=== PATIENT | female | born 1965 | race Caucasian/White ===

== ENCOUNTER 2020-05-21 06:46 | Inpatient (IN) | payer SELFPAY ==
[2020-05-21 06:50] VITALS: BP 141/115; PULSE 103; RESP 20; TEMP 36.2; O2SAT 97; BMI 22.7
--- NOTE | 2020-05-21 07:19 | ED_ITS ---
HPI - Psych General: Chief Complaint: Psychiatric Symptoms Stated Complaint: psych symptoms Time Seen by Provider: 05/21/20 06:46 History of Present Illness: HPI Narrative: 54-year-old female presents to the emergency room with multiple complaints she regularly uses methamphetamines her last use was yesterday. She is extremely disheveled difficult to get her to nail down a specific reason while she is here suspect she is still under the influence of methamphetamines at this time. States she can think about hurting herself but would never do it she has no plan she cites episcopalian disincentive to harming herself states I could never actually kill myself. She also complains of vaginal odor although she denies any vaginal discharge dysuria urgency or frequency states this only occurs when she has sex has been going on for some time. She is wanting it to be admitted to the MPU. complaint: feels depressed Onset (ago): day(s) Duration: constant History of same: Yes Relieving factors: none Exacerbating factors: drug use Context: recent drug abuse Associated psychiatric symptoms: depression and racing thoughts Associated symptoms: Deny auditory hallucinations, visual hallucinations, delusions, depression, homicidal ideation, suicidal ideation or racing thoughts Treatments prior to arrival: none If self harm: admits thoughts of self harm (Has no intent to harm herself. She cites episcopalian as a reason that keeps her from harming herself.) Review of Systems Const: Denies: fever(s), chills, body aches, change in appetite, fatigue or malaise ENMT: Denies: throat pain, ear or mastoid pain, nasal discharge or nasal congestion Card: Denies: chest pain, edema, dyspnea on exertion or orthopnea Resp: Denies: dyspnea, productive cough or non-productive cough GI: Denies: abdominal pain, nausea, vomiting, hematemesis, coffee ground emesis, diarrhea, constipation, bloating, hematochezia or melena : Denies: flank pain, difficulty voiding, dysuria, urinary frequency or urinary urgency Skin/Breast: Denies: rash or pruritus Psych: Denies: depression, visual hallucinations, auditory hallucinations, suicidal ideation or homicidal ideation PFS ED PFSH: Social History (Updated 05/21/20 @ 07:31 by Chris Mayers DO) Substance/Drug Use: current Substance/Drug use frequency: daily Substance/Drug use type: Methamphetamine Physical Exam Const: COMMON NORMALS: no acute distress GENERAL APPEARANCE: cooperative and comfortable ORIENTATION/CONSCIOUSNESS: Yes awake, Yes oriented to person, Yes oriented to place and Yes oriented to time HENMT: COMMON NORMALS: normocephalic, atraumatic and hearing grossly normal bilaterally HEAD & SCALP: normocephalic and atraumatic Neck/C-Spine: COMMON NORMALS: no JVD Resp: COMMON NORMALS: normal respiratory effort, No retractions, No use of accessory muscles and clear to auscultation bilaterally AUSCULTATION: clear to auscultation bilaterally Cardio: COMMON NORMALS: no JVD, regular rate, regular rhythm and No murmurs present (Cardio) RATE: regular rate RHYTHM: regular rhythm GI: COMMON NORMALS: Soft to palpation and No hepatosplenomegaly present AUSCULTATION: Yes normoactive bowel sounds PALPATION: Yes Soft to palpation, No Tenderness to palpation present (GI), No Guarding due to palpation present (GI) and Yes No hepatosplenomegaly present Back/Pelvis: OTHER: Patient agreed to allow nurse and SANE training to do pelvic exam. exam supervised by myself. No cervical motion tenderness noted Extremity: COMMON NORMALS: normal to inspection, capillary refill normal, no clubbing, cyanosis or edema, no calf tenderness and no pedal edema Neuro: SENSORIUM/ORIENTATION: Yes oriented to person, Yes oriented to place and Yes oriented to time Psych: THOUGHT CONTENT: No delusions Skin: COMMON NORMALS: no rashes or lesions noted GENERAL SKIN EXAM: no rashes or lesions noted MDM - Psych MDM Narrative: Medical decision making narrative: Patient expresses suicidal ideation but then states she would not actually harm herself she is very anxious. She seems to be having anxiety she comes off the methamphetamine. It is difficult to separate this out I discussed with Dr. Lacy ultimately decided to place patient in observation she is willing to be admitted and is actually requesting it. We did do GC chlamydia and wet mount if those are negative the neck step would be to refer her to gynecology for further evaluation. Lab Data: Labs: Lab Results 05/21/20 05/21/20 05/21/20 Range/Units 07:15 07:15 07:42 WBC 4.9 (4.0-10.0) 10^3/ uL RBC 5.37 H (4.1-5.3) 10^6/u L Hgb 15.6 H (11.5-15.3) g/dL Hct 49.7 H (37.0-47.0) % MCV 92.6 (81-99) fL MCH 29.1 (28.0-34.0) pg MCHC 31.4 (30.0-36.0) g/dL RDW 12.3 (12.1-15.1) % Plt Count 232 (130-400) 10^3/c mm MPV 9.1 (7.4-10.4) fL Neut % (Auto) 54.6 % Lymph % (Auto) 34.4 % [place] % (Auto) 6.3 % Eos % (Auto) 3.9 % Baso % (Auto) 0.6 % Neut # (Auto) 2.68 (1.8-7.7) 10^3/u L Lymph # (Auto) 1.7 (0.8-4.8) 10^3/u L [place] # (Auto) 0.3 (0.2-0.9) 10^3/u L Eos # (Auto) 0.2 (0.0-0.8) 10^3/u L Baso # (Auto) 0.0 (0.0-0.1) 10^3/u L Nucleated RBC % (a uto) 0 % Nucleated RBCs # 0.0 /100WBC Sodium (136-145) mmol/L Potassium (3.5-5.1) mmol/L Chloride (98-107) mmol/L Carbon Dioxide (22-29) mmol/L Anion Gap (5-19) BUN (6-20) mg/dL Creatinine (0.5-0.9) mg/dL GFR Calculation (90-130) mL/min Glucose (65-115) mg/dL Calculated Osmolal ity (285-295) mOsm/k g Calcium (8.5-10.5) mg/dL Total Bilirubin (0.15-1.2) mg/dL AST (0-32) U/L ALT (0-33) U/L Alkaline Phosphata se (35-105) IU/L Total Protein (6.6-8.7) g/dL Albumin (3.5-5.2) g/dL Globulin (1.3-4.6) g/dL Urine Color Yellow (Yellow) Urine Appearance Clear (CLEAR) Urine pH 6.0 (5-7) Ur Specific Gravit y 1.015 (1.005-1.030) Urine Protein Neg (Negative) Urine Glucose (UA) Norm (Normal) Urine Ketones Negative (Negative) Urine Blood Neg (Negative) Urine Nitrate Negative (Negative) Urine Bilirubin Neg (Negative) Urine Urobilinogen Norm (Negative) mg/dL Ur Leukocyte Lizeth ase Negative (Negative) Salicylates (3-10) mg/dL Urine Opiates Scre en Negative (Negative) ng/mL Acetaminophen (10-30) ug/mL Ur Barbiturates Sc reen Negative (Negative) ng/mL Ur Phencyclidine S crn Negative (Negative) ng/mL Ur Amphetamines Sc reen Positive H (Negative) ng/mL U Benzodiazepines Scrn Negative (Negative) ng/mL Urine Cocaine Scre en Negative (Negative) ng/mL U Marijuana (THC) Screen Negative (Negative) ng/mL Ethyl Alcohol (0-10) mg/dL 05/21/20 Range/Units 07:42 WBC (4.0-10.0) 10^3/ uL RBC (4.1-5.3) 10^6/u L Hgb (11.5-15.3) g/dL Hct (37.0-47.0) % MCV (81-99) fL MCH (28.0-34.0) pg MCHC (30.0-36.0) g/dL RDW (12.1-15.1) % Plt Count (130-400) 10^3/c mm MPV (7.4-10.4) fL Neut % (Auto) % Lymph % (Auto) % [place] % (Auto) % Eos % (Auto) % Baso % (Auto) % Neut # (Auto) (1.8-7.7) 10^3/u L Lymph # (Auto) (0.8-4.8) 10^3/u L [place] # (Auto) (0.2-0.9) 10^3/u L Eos # (Auto) (0.0-0.8) 10^3/u L Baso # (Auto) (0.0-0.1) 10^3/u L Nucleated RBC % (a uto) % Nucleated RBCs # /100WBC Sodium 137 (136-145) mmol/L Potassium 3.7 (3.5-5.1) mmol/L Chloride 101 (98-107) mmol/L Carbon Dioxide 29 (22-29) mmol/L Anion Gap 10.7 (5-19) BUN 8 (6-20) mg/dL Creatinine 0.7 (0.5-0.9) mg/dL GFR Calculation 87.9 L (90-130) mL/min Glucose 115 (65-115) mg/dL Calculated Osmolal ity 283 L (285-295) mOsm/k g Calcium 9.6 (8.5-10.5) mg/dL Total Bilirubin 0.2 (0.15-1.2) mg/dL AST 16 (0-32) U/L ALT 14 (0-33) U/L Alkaline Phosphata se 71 (35-105) IU/L Total Protein 7.1 (6.6-8.7) g/dL Albumin 4.2 (3.5-5.2) g/dL Globulin 2.9 (1.3-4.6) g/dL Urine Color (Yellow) Urine Appearance (CLEAR) Urine pH (5-7) Ur Specific Gravit y (1.005-1.030) Urine Protein (Negative) Urine Glucose (UA) (Normal) Urine Ketones (Negative) Urine Blood (Negative) Urine Nitrate (Negative) Urine Bilirubin (Negative) Urine Urobilinogen (Negative) mg/dL Ur Leukocyte Lizeth ase (Negative) Salicylates < 0.3 L (3-10) mg/dL Urine Opiates Scre en (Negative) ng/mL Acetaminophen < 5.0 L (10-30) ug/mL Ur Barbiturates Sc reen (Negative) ng/mL Ur Phencyclidine S crn (Negative) ng/mL Ur Amphetamines Sc reen (Negative) ng/mL U Benzodiazepines Scrn (Negative) ng/mL Urine Cocaine Scre en (Negative) ng/mL U Marijuana (THC) Screen (Negative) ng/mL Ethyl Alcohol < 10 (0-10) mg/dL Discharge Plan Discharge Patient Disposition: Placed in Observation Admit Provider: Antonio Lacy Clinical Impression: Acute anxiety, Suicidal ideation, Substance abuse Coding Level of Care Code ED Milliner Helper for g Fwd Exam Comprehensive
[2020-05-21 07:31] LABS: Add Urine Microscopic? NO
[2020-05-21 07:37] LABS: Bilirubin Urine Neg (Negative); Blood Urine Neg (Negative); Glucose Urine UA Norm (Normal); Ketones Urine Negative (Negative); Leukocyte Esterase Urine Negative (Negative); Nitrate Urine Negative (Negative); Protein Urine Neg (Negative); Specific Gravity, Urine 1.015 (1.005-1.030); Urine Appearance Clear (CLEAR); Urine Color Yellow (Yellow); Urobilinogen Urine Norm (Negative)
[2020-05-21 07:41] LABS: Amphetamines Screen Urine Positive (Negative); Barbiturates Screen Urine Negative (Negative); Benzodiazepines Screen Urine Negative (Negative); Cocaine Screen Urine Negative (Negative); Opiate Screen Urine Negative (Negative); PCP Screen Urine Negative (Negative); THC Screen Urine Negative (Negative)
[2020-05-21 07:52] LABS: Basophils % 0.6 %; Eosinophils # 0.2 10^3/uL (0.0-0.8); Eosinophils % 3.9 %; Hematocrit 49.7 % (37.0-47.0); Hemoglobin 15.6 g/dL (11.5-15.3); Lymphocytes # 1.7 10^3/uL (0.8-4.8); Lymphocytes % 34.4 %; Mean Corpuscular HGB Conc 31.4 g/dL (30.0-36.0); Mean Corpuscular Hemoglobin 29.1 pg (28.0-34.0); Mean Corpuscular Volume 92.6 fL (81-99); Mean Platelet Volume 9.1 fL (7.4-10.4); Monocytes # 0.3 10^3/uL (0.2-0.9); Monocytes % 6.3 %; Neutrophils # 2.68 10^3/uL (1.8-7.7); Neutrophils % 54.6 %; Nucleated Red Blood Cells % 0 %; Platelet Count 232 10^3/cmm (130-400); Red Blood Count 5.37 10^6/uL (4.1-5.3); Red Cell Distribution Width 12.3 % (12.1-15.1); White Blood Count 4.9 10^3/uL (4.0-10.0)
[2020-05-21 08:07] LABS: Alanine Aminotransferase 14 U/L (0-33); Albumin Level 4.2 g/dL (3.5-5.2); Alkaline Phosphatase 71 IU/L (35-105); Anion Gap 10.7 (5-19); Aspartate Amino Transferase 16 U/L (0-32); Blood Urea Nitrogen 8 mg/dL (6-20); Calcium 9.6 mg/dL (8.5-10.5); Carbon Dioxide 29 mmol/L (22-29); Chloride 101 mmol/L (98-107); Globulin 2.9 g/dL (1.3-4.6); Glomerular Filtration Rate 87.9 mL/min (90-130); Glucose 115 mg/dL (65-115); Osmolality Calculated 283 mOsm/kg (285-295); Potassium 3.7 mmol/L (3.5-5.1); Sodium 137 mmol/L (136-145); Total Bilirubin 0.2 mg/dL (0.15-1.2); Total Protein 7.1 g/dL (6.6-8.7)
[2020-05-21 08:10] LABS: Acetaminophen < 5.0 ug/mL (10-30); Alcohol Level < 10 mg/dL (0-10); Salicylate < 0.3 mg/dL (3-10)
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
[2020-05-21 09:00] VITALS: BP 140/92; PULSE 95; RESP 18; O2SAT 96
[2020-05-21 09:08] VITALS: BP 130/87; PULSE 87; RESP 20; TEMP 36.7; O2SAT 99
[2020-05-21] MEDS: metroNIDAZOLE 500 MG Tablet PO ×2 (09:59→21:26)
--- NOTE | 2020-05-21 10:01 | PC.NURSE ---
FLU VACCINE 1 SINGLE DOSE 0.5 ML GIVEN IM IN RIGHT DELTOID. PT EDUCATED ON MED GIVEN & VERBALIZED UNDERSTANDING. WILL CONT TO MONITOR INJECTION SITE FOR ANY REDNESS, SWELLING, OR IRRITATION. LOT [id number] EXP 10/13/20
[2020-05-21 14:00] VITALS: BP 115/75; PULSE 87; RESP 18; TEMP 36.9; O2SAT 98
[2020-05-21] MEDS: nicotine 2 mg Gum BUCCAL (15:06)
[2020-05-21] MEDS: trazodone 50 mg Tablet PO (21:26)
[2020-05-21] MEDS: hyDROXYzine 25 mg Capsule 50 MG PO (21:26)
[2020-05-21] MEDS: acetaminophen 325 mg Tablet 650 MG PO (21:27)
[2020-05-21 22:00] VITALS: BP 112/71; PULSE 118; RESP 19; TEMP 36.9; O2SAT 95
--- NOTE | 2020-05-22 01:34 | PC.NURSE ---
Pain/hands Bilateral hand pain, wrist, and joint. She reports pain at a 10. Tearful. Pt received tylenol 650mg PO without much relief. This is a chronic condition. It has never been diagnosed and is worse than it has ever been per pt report. Applied heat compresses for 15 minutes to both hands, soaked them in warm water, and patient reported immediate relief. Pt does not want any more medication but would like to see a physician about her hand pain.
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
[2020-05-22 06:00] VITALS: BP 117/72; PULSE 86; RESP 16; TEMP 37.1; O2SAT 94
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
[2020-05-22] MEDS: metroNIDAZOLE 500 MG Tablet PO ×2 (08:41→21:53)
[2020-05-22 13:52] VITALS: BP 122/80; PULSE 90; RESP 17; TEMP 37.1; O2SAT 95
[2020-05-22 20:34] VITALS: BP 127/84; PULSE 93; RESP 18; TEMP 37.1; O2SAT 95
[2020-05-22] MEDS: hyDROXYzine 25 mg Capsule 50 MG PO (21:53)
[2020-05-22] MEDS: nicotine 2 mg Gum BUCCAL (21:53)
[2020-05-22] MEDS: trazodone 50 mg Tablet PO (21:54)
[2020-05-22] MEDS: acetaminophen 325 mg Tablet 650 MG PO (21:54)
[2020-05-23 06:00] VITALS: BP 143/83; PULSE 101; RESP 16; TEMP 36.9; O2SAT 96; BMI 22.7
--- NOTE | 2020-05-23 06:04 | PC.NURSE ---
TRAZODONE/VISTERIL/TYLENOL @ 2100 PT RECEIVED TRAZODONE 50MG PO, VISTERIL 50MG PO, TYLENOL 650MG PO GIVEN FOR INSOMNIA, ANXIETY, AND MINOR WRIST PAIN, result sleep, reduction of anxiety, and relief of pain.
[2020-05-23] MEDS: acetaminophen 325 mg Tablet 650 MG PO (09:04)
[2020-05-23] MEDS: ARIPiprazole 10 mg Tablet PO (09:04)
[2020-05-23] MEDS: metroNIDAZOLE 500 MG Tablet PO (09:04)
[2020-05-23] MEDS: ibuprofen 800 mg tablet PO (11:02)
[2020-05-23 14:00] VITALS: BP 123/76; PULSE 89; RESP 18; TEMP 37.7
--- NOTE | 2020-05-23 14:33 | PM.NDC ---
Diagnoses at Discharge Discharge Diagnosis (1) Acute anxiety: Status: Acute (2) Suicidal ideation: Status: Resolved (3) Substance abuse: Status: Acute (4) Psychosis: Status: Acute (5) Methamphetamine abuse: Status: Acute (6) Withdrawal from methamphetamine: Status: Resolved Reason for Visit Reason for Visit: psych symptoms Involuntary Hold Information 96 Hour Hold: 96 Hour Involuntary Admission: No Mental Status Exam MSE Comments: This is a well-nourished well-developed white female with hospital scrubs on with improved grooming and eye contact. No abnormal movements except for mild but resolving psychomotor retardation. Cooperative with exam in no acute distress. Speech was more normal rate and volume. Mood described as better, affect congruent. Thought process more organized. Thought content: Patient denied any suicidal or homicidal ideation, there is no delusions reported but paranoia and persecutory delusions resolving, she denied any auditory or visual hallucinations but some of her story sounds like she was having both prior to admission. Attention and concentration were intact and memory was more reliable but none were formally tested. She is alert and oriented x3. Insight and judgment are improving, impulse control is improving. Discharge Data Vitals: Last Vital Signs Temp 99.9 F H 05/23/20 14:00 Pulse 89 05/23/20 14:00 Resp 18 05/23/20 14:00 BP 123/76 05/23/20 14:00 Pulse Ox 96 05/23/20 06:00 Discharge Plan Discharge Patient Disposition: Home Condition: Stable Prescriptions: New aripiprazole 10 mg Tablet 10 mg PO DAILY 30 Days Qty: 30 RF: 1 Discharge Orders: Discharge Order (Routine); Ordered 05/23/20 Ordered By: Antonio Lacy Referrals: [facility] [Other] (Application has been faxed to them. Please follow up with them on bed availability or interview if not sent directly from the hospital.) Discharge Diet: Regular Discharge Activity: Resume usual activity Discharge Attestations NPU Time Spent in Discharge Care*: less than 30 min Specific Discharge Activities: Specific discharge activities: educating patient, discussing with employment evaluator/case manager/social workers/dc planners, documenting/other paperwork and evaluating patient/reviewing data Coding Level of Care Code Acute Ice Cream Chef for René Dubose Diagnoses Acute anxiety F41.9 Suicidal ideation R45.851 Substance abuse F19.10 Psychosis F29 Methamphetamine abuse F15.10 Withdrawal from methamphetamine F15.23
[2020-05-23 14:34] VITALS: BP 123/76; PULSE 89; RESP 18; TEMP 37.7
== END 2020-05-23 14:51 | disposition home or self-care (01) | DRG 885 ==
LOC: ER 06:55 → NP 08:44
PROVIDERS: Admitting Provider Psychiatry & Neurology Psychiatry; Emergency Provider Family Medicine; Visit Provider Psychiatry & Neurology Psychiatry
DX: F23 Brief psychotic disorder (principal); R45.851 Suicidal ideations; F15.13 Other stimulant abuse with withdrawal; F41.9 Anxiety disorder, unspecified; F32.9 Major depressive disorder, single episode, unspecified
CPT/HCPCS: 12345; 36415; 80053; 80306; 80307; 81003; 85025; 87210; 87491; 87591; 87661; 90471; 90686; 99284; 99291; E0352

== ENCOUNTER 2021-05-20 10:44 | Inpatient (IN) | payer MEDICAID, SELFPAY ==
[2021-05-20 10:52] VITALS: BMI 26.6
--- NOTE | 2021-05-20 10:55 | W.ED.PSYCHS ---
HPI - Psych General: Chief Complaint: Psychiatric Symptoms Stated Complaint: 96 Time Seen by Provider: 05/20/21 10:51 Source: patient History of Present Illness: 55-year-old female who presents to the emergency room in the custody of [facility]. She has a 96-hour hold from the court for acute psychosis with auditory and visual hallucinations. Patient has been admitted to our facility previously almost a year ago to the day for a similar type presentation. She is noncooperative and refuses to discuss her situation. She is fixating on the fact that she is eating inappropriately detained. complaint: altered mental status Onset (ago): day(s) Duration: constant History of same: Yes Relieving factors: none Exacerbating factors: drug use Context: recent drug abuse Associated psychiatric symptoms: racing thoughts, auditory hallucinations and visual hallucinations Associated symptoms: Reports auditory hallucinations and visual hallucinations Treatments prior to arrival: placed on mental health hold Review of Systems General: Reports: ROS unobtainable due to mental status Psych: Reports: visual hallucinations and auditory hallucinations PFS ED PFSH: Medical History (Updated 05/20/21 @ 17:01 by Chris Mayers DO) Acute anxiety Methamphetamine abuse Psychosis Substance abuse Surgical History (Updated 05/20/21 @ 16:58 by Chris Mayers DO) No significant past surgical history Physical Exam Narrative: EXAM NARRATIVE: Patient refused to allow exam initially. Const: ORIENTATION/CONSCIOUSNESS: Yes awake HENMT: COMMON NORMALS: normocephalic, atraumatic and hearing grossly normal bilaterally HEAD & SCALP: normocephalic and atraumatic Neck/C-Spine: COMMON NORMALS: no JVD Resp: COMMON NORMALS: normal respiratory effort, No retractions, No use of accessory muscles and clear to auscultation bilaterally AUSCULTATION: clear to auscultation bilaterally Cardio: COMMON NORMALS: no JVD, regular rate, regular rhythm and No murmurs present (Cardio) RATE: regular rate RHYTHM: regular rhythm GI: COMMON NORMALS: Soft to palpation and No hepatosplenomegaly present AUSCULTATION: Yes normoactive bowel sounds PALPATION: Yes Soft to palpation, No Tenderness to palpation present (GI), No Guarding due to palpation present (GI) and Yes No hepatosplenomegaly present Extremity: COMMON NORMALS: normal to inspection, capillary refill normal, no clubbing, cyanosis or edema, no calf tenderness and no pedal edema Skin: COMMON NORMALS: no rashes or lesions noted GENERAL SKIN EXAM: no rashes or lesions noted Face to Face: Restrn/Seclusion Events leading up to initiation: Verbalizing threat to self or others (Patient aggressive attempting to leave refusing to comply with encouragement to change) Evaluation of patient's immediate situation: Alert and oriented Patient reaction since intervention applied: Continued attempts/displays harmful behavior Review of medications: Yes Patient's current medical/behavioral condition: No new concerns since last ROS Need for restraint or seclusion is: Continued Attending notified: Yes Course Vital Signs: Vital signs: Vital Signs Temperature 98.0 F 05/20/21 14:37 Pulse Rate 94 05/20/21 14:37 Respiratory Rate 13 05/20/21 16:49 Blood Pressure 97/59 05/20/21 14:37 Pulse Oximetry 100 05/20/21 14:37 MDM - Psych Medical Decision Making Labs reviewed. Discussed with Dr. Lacy. Patient irrational with bizarre auditory and visual hallucinations random streams of thought. She is under 96-hour hold Dr. Lacy concurs orders written Medical Records I reviewed the patient's medical records. Lab Data I reviewed the patient's lab results. : 05/20/21 13:25 05/20/21 13:25 Discharge Plan Discharge Patient Disposition: Admitted As Inpatient Admit Provider: Antonio Lacy Clinical Impression: Psychosis, Methamphetamine abuse Condition: Stable Coding Level of Care Code ED Overhauler Helper for René Dubose
[2021-05-20] MEDS: LORazepam 2 mg/mL INJ 1 mL IM (11:06)
[2021-05-20] MEDS: ziprasidone 20 mg/mL SDV 10 MG IM (11:07)
[2021-05-20 12:06] VITALS: PULSE 107; RESP 18; O2SAT 97
--- NOTE | 2021-05-20 12:07 | PC.NURSE ---
Pt uncooperative with obtaining initial blood pressure.
[2021-05-20 13:35] LABS: Basophils % 0.5 %; Eosinophils # 0.1 10^3/uL (0.0-0.8); Eosinophils % 1.6 %; Hematocrit 38.6 % (37.0-47.0); Hemoglobin 12.2 g/dL (11.5-15.3); Lymphocytes # 1.3 10^3/uL (0.8-4.8); Lymphocytes % 29.6 %; Mean Corpuscular HGB Conc 31.6 g/dL (30.0-36.0); Mean Corpuscular Volume 95.1 fl (81-99); Mean Platelet Volume 8.8 fL (7.4-10.4); Monocytes # 0.4 10^3/uL (0.2-0.9); Monocytes % 8.7 %; Neutrophils # 2.54 10^3/uL (1.8-7.7); Neutrophils % 59.6 %; Nucleated Red Blood Cells % 0 %; Platelet Count 232 10^3/cmm (130-400); Red Blood Count 4.06 10^6/uL (4.1-5.3); Red Cell Distribution Width 13.2 % (12.1-15.1); White Blood Count 4.3 10^3/uL (4.0-10.0)
[2021-05-20 13:59] LABS: Alanine Aminotransferase 18 U/L (0-33); Albumin Level 4.5 g/dL (3.5-5.2); Alkaline Phosphatase 63 IU/L (35-105); Anion Gap 18.6 (5-19); Aspartate Amino Transferase 24 U/L (0-32); Blood Urea Nitrogen 17 mg/dL (6-20); Calcium 9.8 mg/dL (8.5-10.5); Carbon Dioxide 20 mmol/L (22-29); Chloride 102 mmol/L (98-107); Globulin 2.2 g/dL (1.3-4.6); Glomerular Filtration Rate 104.6 mL/min (90-130); Glucose 109 mg/dL (65-115); Osmolality Calculated 286 mOsm/kg (285-295); Potassium 3.6 mmol/L (3.5-5.1); Sodium 137 mmol/L (136-145); Total Bilirubin 0.5 mg/dL (0.15-1.2); Total Protein 6.7 g/dL (6.6-8.7)
[2021-05-20 14:00] LABS: Acetaminophen < 5.0 ug/mL (10-30); Salicylate < 0.3 mg/dL (3-10)
[2021-05-20 14:37] VITALS: BP 97/59; PULSE 94; RESP 20; TEMP 36.7; O2SAT 100
[2021-05-20 16:49] VITALS: RESP 13
[2021-05-20 21:28] VITALS: BP 107/74; PULSE 97; RESP 18; TEMP 36.6; O2SAT 95
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
[2021-05-21 06:00] VITALS: BP 100/63; PULSE 72; RESP 18; TEMP 37.4; O2SAT 97
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
[2021-05-21] MEDS: sertraline 50 mg Tablet PO (08:20)
[2021-05-21] MEDS: nicotine 21 mg Patch 1 PATCH TRANSDERMA (08:54)
[2021-05-21 14:00] VITALS: BP 136/88; PULSE 80; RESP 17; TEMP 36.2; O2SAT 99
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
[2021-05-21] MEDS: ARIPiprazole 10 mg Tablet PO (17:11)
[2021-05-21] MEDS: quetiapine 100 mg Tablet 200 MG PO (21:10)
[2021-05-21] MEDS: mirtazapine 15 mg Tablet PO (21:11)
[2021-05-21] MEDS: trazodone 50 mg Tablet PO (21:11)
[2021-05-21 21:29] VITALS: BP 126/78; PULSE 86; RESP 17; TEMP 36.7; O2SAT 94
[2021-05-22 06:00] VITALS: BP 98/55; PULSE 86; RESP 16; TEMP 37.2; O2SAT 98; BMI 26.6
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
[2021-05-22] MEDS: sertraline 50 mg Tablet PO (10:16)
[2021-05-22] MEDS: ARIPiprazole 10 mg Tablet PO (10:16)
[2021-05-22 14:00] VITALS: BP 126/70; PULSE 92; RESP 18; TEMP 36.6; O2SAT 94
[2021-05-22] MEDS: quetiapine 100 mg Tablet 200 MG PO (20:48)
[2021-05-22] MEDS: mirtazapine 15 mg Tablet PO (20:48)
[2021-05-22] MEDS: trazodone 50 mg Tablet PO (20:48)
[2021-05-22 20:56] VITALS: BP 120/72; PULSE 105; RESP 17; TEMP 36.7; O2SAT 98
[2021-05-22] MEDS: bisacodyl 5 mg Tablet PO (21:15)
[2021-05-23 06:00] VITALS: BP 103/66; PULSE 86; RESP 18; TEMP 36.7; O2SAT 92
[2021-05-23] MEDS: ARIPiprazole 10 mg Tablet PO (10:30)
[2021-05-23] MEDS: sertraline 50 mg Tablet PO (10:30)
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
--- NOTE | 2021-05-23 11:47 | PC.OT ---
OT EVALUATION ATTEMPTED. PATIENT ASKED TO WAIT UNTIL TOMORROW. STATES THAT SHE DOES NOT PLAN TO ATTEND GROUPS TODAY.
--- NOTE | 2021-05-23 13:12 | NPU.GN ---
[facility] Group Topic: Whine Barrel Activity General Mood of Group: Brooklyn did not attend group today.
[2021-05-23] MEDS: nicotine 21 mg Patch 1 PATCH TRANSDERMA (13:43)
[2021-05-23 14:00] VITALS: BP 116/72; PULSE 95; RESP 18; TEMP 37; O2SAT 94
[2021-05-23 22:00] VITALS: BP 113/75; PULSE 70; RESP 18; O2SAT 96
[2021-05-23] MEDS: quetiapine 100 mg Tablet 200 MG PO (22:02)
[2021-05-23] MEDS: trazodone 50 mg Tablet PO (22:02)
[2021-05-23] MEDS: mirtazapine 15 mg Tablet PO (22:02)
[2021-05-24 06:00] VITALS: BP 107/68; PULSE 83; RESP 18; TEMP 36.6; O2SAT 91
[2021-05-24] MEDS: sertraline 50 mg Tablet PO (09:17)
[2021-05-24] MEDS: ARIPiprazole 10 mg Tablet PO (09:17)
--- NOTE | 2021-05-24 13:03 | NPU.GN ---
[facility] Group Topic: Self Care General Mood of Group: Brooklyn did not attend group today.
[2021-05-24 14:00] VITALS: BP 128/74; PULSE 68; RESP 17; TEMP 36.9; O2SAT 98
[2021-05-24] MEDS: hyDROXYzine 25 mg Capsule 50 MG PO (17:08)
--- NOTE | 2021-05-24 17:44 | P.NPUPN_ITS ---
Subjective NPU Subjective: Interval history: Patient presents today having slow and continued improvement in regards to the psychotic features of her presentation. Team was able to connect with her p.o. and it is likely that there is a sober living facility available as early as tomorrow. She continues to endorse a commitment to her recovery and she is starting to be able to identify the possibility that her psychosis and her thoughts about her children not being safe are interconnected and this is interconnected with her methamphetamine use. She continues to take the medication and reports he is eating and sleeping a little better. Mental Status Exam MSE Comments: This is a well-nourished well-developed white female with hospital scrubs on with limited grooming and eye contact.? No abnormal movements except for mild psychomotor retardation.? Cooperative with exam in no acute distress.? Speech was more normal rate and volume.? Mood described as a little better, affect subdued.? Thought process mostly organized.? Thought content: Patient denied any suicidal or homicidal ideation, there is no delusions reported but lessening paranoid and persecutory delusions noted, she denied any auditory or visual hallucinations but some of her story sounds like she was having both prior to admission.? Attention and concentration were intact and memory was more reliable but none were formally tested.? She is alert and oriented x3.? Insight and judgment are improving, impulse control is limited. Vitals/I&O/Wt Last Vital Signs Temp 98.5 F 05/24/21 14:00 Pulse 68 05/24/21 14:00 Resp 17 05/24/21 14:00 BP 128/74 05/24/21 14:00 Pulse Ox 98 05/24/21 14:00 Data NPU : 05/20/21 13:25 05/20/21 13:25 A&P Assessment and plan (1) Methamphetamine dependence: Status: Acute (2) No significant past surgical history: Status: Acute (3) Substance abuse: Status: Acute (4) Acute anxiety: Status: Acute (5) Psychosis: Status: Acute (6) Methamphetamine abuse: Status: Acute Plan This is a 55-year-old white female with a long history of mental health and addiction issues with active methamphetamine dependence and psychosis either created or exacerbated by her methamphetamine use who presents with significant focus on her children being trafficked off of her medication will open to restarting it. 1.? Continue current medication.? Restarted Abilify 10 mg p.o. every morning. 2.? Continue every 15 minute checks for safety. 3.? Encourage individual, group and milieu therapies. 4.? Encourage sober living treatment after discharge at the highest level of care to which he is willing to commit. Involuntary Hold Information 96 Hour Hold: 96 Hour Involuntary Admission: Yes Attestations NPU Medical Necessity Statement*: Inpatient hospitalization is medically necessary and the clinically appropriate intervention at this time. We will monitor medication to make changes as indicated.? Likely length of stay 1-2 days. Coding Level of Care Code Acute Business Process Coordinator for [facility] Fwd Diagnoses Methamphetamine dependence F15.20 No significant past surgical history Substance abuse F19.10 Acute anxiety F41.9 Psychosis F29 Methamphetamine abuse F15.10
--- NOTE | 2021-05-24 18:47 | PC.PHAR ---
PRN- Patient c/o anxiety and agitation at 1710. Took PRN Vistaril. Patient has had no further c/o voiced.
[2021-05-24 20:26] VITALS: BP 100/62; PULSE 91; RESP 18; TEMP 36.6; O2SAT 98
[2021-05-24] MEDS: mirtazapine 15 mg Tablet PO (21:42)
[2021-05-24] MEDS: quetiapine 100 mg Tablet 200 MG PO (21:42)
[2021-05-24] MEDS: trazodone 50 mg Tablet PO (21:44)
[2021-05-25 05:46] VITALS: BP 95/62; PULSE 70; RESP 17; TEMP 36.7; O2SAT 94
[2021-05-25] MEDS: sertraline 50 mg Tablet PO (08:39)
[2021-05-25] MEDS: ARIPiprazole 10 mg Tablet PO (08:39)
--- NOTE | 2021-05-25 12:55 | NPU.GN ---
[facility] Group Topic:Coping Skills General Mood of Group: [place] did not attend group today.
[2021-05-25 13:49] VITALS: BP 109/72; PULSE 75; RESP 24; TEMP 36.9; O2SAT 98
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
[2021-05-25 14:04] VITALS: BP 109/72; PULSE 75; RESP 24; TEMP 36.9; O2SAT 98
== END 2021-05-25 14:29 | disposition home or self-care (01) | DRG 885 ==
LOC: ER 11:03 → NP 13:20
PROVIDERS: Admitting Provider Psychiatry & Neurology Psychiatry; Emergency Provider Family Medicine; Visit Provider Psychiatry & Neurology Psychiatry
DX: F23 Brief psychotic disorder (principal); F15.20 Other stimulant dependence, uncomplicated; F41.9 Anxiety disorder, unspecified
CPT/HCPCS: 36415; 80053; 80307; 85025; 96372; 97150; 97165; 99285; J2060; J3486

== ENCOUNTER 2021-06-24 17:30 | Inpatient (IN) | payer MEDICAID, SELFPAY ==
[2021-06-24 17:36] VITALS: BP 127/80; PULSE 103; RESP 16; TEMP 36.6; O2SAT 96; BMI 22.5
--- NOTE | 2021-06-24 18:03 | W.ED.PSYCHS ---
Documented by User: Chris Mayers DO 06/28/21 16:41 HPI - Psych General: Chief Complaint: Psychiatric Symptoms Stated Complaint: 96'd ? Time Seen by Provider: 06/24/21 17:45 Source: patient Mode of arrival: other (Law enforcement) Limitations: no limitations History of Present Illness: 55-year-old female who has a history of schizophrenia and bipolar per her report. She been having auditory and visual hallucinations including thoughts about harming herself this was several days ago spent a few weeks and she is taking her medications appropriately she states she did take them last night she has been using methamphetamine recently. She was highlighted a 96-hour hold was filled out. She is brought in here to be evaluated. She is awake alert oriented answers questions appropriately states she is not used methamphetamines for a couple of days and denies any suicidal homicidal ideation at this time denies any ongoing auditory or visual hallucination MD complaint: suicidal ideation Onset (ago): day(s) Duration: constant Relieving factors: none Exacerbating factors: none Context: recent drug abuse Associated psychiatric symptoms: racing thoughts, auditory hallucinations, visual hallucinations and delusions Associated symptoms: Reports auditory hallucinations, visual hallucinations, delusions and suicidal ideation Treatments prior to arrival: placed on mental health hold If self harm: admits thoughts of self harm Review of Systems Const: Denies: fever(s), chills, body aches, change in appetite, fatigue or malaise ENMT: Denies: throat pain, ear or mastoid pain, nasal discharge or nasal congestion Card: Denies: chest pain, edema, dyspnea on exertion or orthopnea Resp: Denies: dyspnea, productive cough or non-productive cough GI: Denies: abdominal pain, nausea, vomiting, hematemesis, diarrhea or constipation : Denies: flank pain, difficulty voiding, dysuria, urinary frequency or urinary urgency Skin/Breast: Denies: rash or pruritus Psych: Reports: visual hallucinations, auditory hallucinations and suicidal ideation PFS ED PFSH: Medical History (Updated 06/24/21 @ 19:06 by Keith Mcmahon DO) Acute anxiety Psychosis Substance abuse Surgical History (Updated 05/26/21 @ 00:00 by ) No significant past surgical history Physical Exam Const: GENERAL APPEARANCE: cooperative and comfortable ORIENTATION/CONSCIOUSNESS: Yes awake HENMT: COMMON NORMALS: normocephalic, atraumatic and hearing grossly normal bilaterally HEAD & SCALP: normocephalic and atraumatic Neck/C-Spine: COMMON NORMALS: no JVD Resp: COMMON NORMALS: normal respiratory effort, No retractions, No use of accessory muscles and clear to auscultation bilaterally AUSCULTATION: clear to auscultation bilaterally Cardio: COMMON NORMALS: no JVD, regular rate, regular rhythm and No murmurs present (Cardio) RATE: regular rate RHYTHM: regular rhythm GI: COMMON NORMALS: Soft to palpation and No hepatosplenomegaly present AUSCULTATION: Yes normoactive bowel sounds PALPATION: Yes Soft to palpation, No Tenderness to palpation present (GI), No Guarding due to palpation present (GI) and Yes No hepatosplenomegaly present Extremity: COMMON NORMALS: normal to inspection, capillary refill normal, no clubbing, cyanosis or edema, no calf tenderness and no pedal edema Psych: THOUGHT CONTENT: Yes delusions Skin: COMMON NORMALS: no rashes or lesions noted GENERAL SKIN EXAM: no rashes or lesions noted Course Vital Signs: Vital signs: Vital Signs Temperature 98.0 F 06/28/21 13:56 Pulse Rate 86 06/28/21 13:56 Respiratory Rate 17 06/28/21 13:56 Blood Pressure 115/71 06/28/21 13:56 Pulse Oximetry 96 06/28/21 13:56 MDM - Psych Medical Records I reviewed the patient's medical records. Lab Data I reviewed the patient's lab results. : 06/24/21 18:15 06/24/21 18:15 Laboratory Results WBC 7.0 10^3/uL (4.0-10.0) 06/24/21 18:15 RBC 4.80 10^6/uL (4.1-5.3) 06/24/21 18:15 Hgb 13.9 g/dL (11.5-15.3) 06/24/21 18:15 Hct 43.1 % (37.0-47.0) 06/24/21 18:15 MCV 89.8 fl (81-99) 06/24/21 18:15 MCH 29.0 pg (28.0-34.0) 06/24/21 18:15 MCHC 32.3 g/dL (30.0-36.0) 06/24/21 18:15 RDW 12.2 % (12.1-15.1) 06/24/21 18:15 Plt Count 223 10^3/cmm (130-400) 06/24/21 18:15 MPV 8.7 fL (7.4-10.4) 06/24/21 18:15 Neut % (Auto) 68.7 % 06/24/21 18:15 Lymph % (Auto) 22.8 % 06/24/21 18:15 [place] % (Auto) 6.6 % 06/24/21 18:15 Eos % (Auto) 1.4 % 06/24/21 18:15 Baso % (Auto) 0.4 % 06/24/21 18:15 Neut # (Auto) 4.77 10^3/uL (1.8-7.7) 06/24/21 18:15 Lymph # (Auto) 1.6 10^3/uL (0.8-4.8) 06/24/21 18:15 [place] # (Auto) 0.5 10^3/uL (0.2-0.9) 06/24/21 18:15 Eos # (Auto) 0.1 10^3/uL (0.0-0.8) 06/24/21 18:15 Baso # (Auto) 0.0 10^3/uL (0.0-0.1) 06/24/21 18:15 Nucleated RBC % (auto) 0 % 06/24/21 18:15 Nucleated RBCs # 0.0 /100WBC 06/24/21 18:15 Sodium 141 mmol/L (136-145) 06/24/21 18:15 Potassium 3.4 mmol/L (3.5-5.1) L 06/24/21 18:15 Chloride 103 mmol/L (98-107) 06/24/21 18:15 Carbon Dioxide 26 mmol/L (22-29) 06/24/21 18:15 Anion Gap 15.4 (5-19) 06/24/21 18:15 BUN 16 mg/dL (6-20) 06/24/21 18:15 Creatinine 0.7 mg/dL (0.5-0.9) 06/24/21 18:15 GFR Calculation 87.5 mL/min (90-130) L 06/24/21 18:15 Glucose 106 mg/dL (65-115) 06/24/21 18:15 Calculated Osmolality 294 mOsm/kg (285-295) 06/24/21 18:15 Calcium 10.1 mg/dL (8.5-10.5) 06/24/21 18:15 Total Bilirubin 0.4 mg/dL (0.15-1.2) 06/24/21 18:15 AST 24 U/L (0-32) 06/24/21 18:15 ALT 12 U/L (0-33) 06/24/21 18:15 Alkaline Phosphatase 62 IU/L (35-105) 06/24/21 18:15 Total Protein 7.5 g/dL (6.6-8.7) 06/24/21 18:15 Albumin 4.6 g/dL (3.5-5.2) 06/24/21 18:15 Globulin 2.9 g/dL (1.3-4.6) 06/24/21 18:15 Salicylates < 0.3 mg/dL (3-10) L 06/24/21 18:15 Acetaminophen < 5.0 ug/mL (10-30) L 06/24/21 18:15 Ethyl Alcohol < 10 mg/dL (0-10) 06/24/21 18:15 Discharge Plan Discharge Patient Disposition: Admitted As Inpatient Admit Provider: Lanre Schrader Clinical Impression: Psychosis, Suicidal ideation Condition: Stable Coding Level of Care Code ED Talent Acquisition Manager for Chg Fwd Documented by User: Keith Mcmahon DO 06/24/21 22:53 HPI - Psych General: Chief Complaint: Psychiatric Symptoms Stated Complaint: 96'd ? Time Seen by Provider: 06/24/21 17:45 PFSH ED PFSH: Medical History (Updated 06/24/21 @ 19:06 by Keith Mcmahon DO) Acute anxiety Psychosis Substance abuse Surgical History (Updated 05/26/21 @ 00:00 by ) No significant past surgical history Course Consultations: Consultation #1: Raciel Time: 19:04 Vital Signs: Vital signs: Vital Signs Temperature 98.0 F 06/28/21 13:56 Pulse Rate 86 06/28/21 13:56 Respiratory Rate 17 06/28/21 13:56 Blood Pressure 115/71 06/28/21 13:56 Pulse Oximetry 96 06/28/21 13:56 MDM - Psych Medical Decision Making 55-year-old female checked out to me at shift change by Dr. Mayers. This patient is medically stable. She has a potassium of 3.4. Urine drug screen is pending at this point. She has been placed under 96-hour hold by court order. She is currently denying hallucinations, and she is denying suicidal ideation, but has had both quite recently. I spoke with psychiatry, they request evaluation on admission to the neuropsychiatric unit. The patient has been calm to this point, and has not required medication. Lab Data : 06/24/21 18:15 06/24/21 18:15 Laboratory Results WBC 7.0 10^3/uL (4.0-10.0) 06/24/21 18:15 RBC 4.80 10^6/uL (4.1-5.3) 06/24/21 18:15 Hgb 13.9 g/dL (11.5-15.3) 06/24/21 18:15 Hct 43.1 % (37.0-47.0) 06/24/21 18:15 MCV 89.8 fl (81-99) 06/24/21 18:15 MCH 29.0 pg (28.0-34.0) 06/24/21 18:15 MCHC 32.3 g/dL (30.0-36.0) 06/24/21 18:15 RDW 12.2 % (12.1-15.1) 06/24/21 18:15 Plt Count 223 10^3/cmm (130-400) 06/24/21 18:15 MPV 8.7 fL (7.4-10.4) 06/24/21 18:15 Neut % (Auto) 68.7 % 06/24/21 18:15 Lymph % (Auto) 22.8 % 06/24/21 18:15 [place] % (Auto) 6.6 % 06/24/21 18:15 Eos % (Auto) 1.4 % 06/24/21 18:15 Baso % (Auto) 0.4 % 06/24/21 18:15 Neut # (Auto) 4.77 10^3/uL (1.8-7.7) 06/24/21 18:15 Lymph # (Auto) 1.6 10^3/uL (0.8-4.8) 06/24/21 18:15 [place] # (Auto) 0.5 10^3/uL (0.2-0.9) 06/24/21 18:15 Eos # (Auto) 0.1 10^3/uL (0.0-0.8) 06/24/21 18:15 Baso # (Auto) 0.0 10^3/uL (0.0-0.1) 06/24/21 18:15 Nucleated RBC % (auto) 0 % 06/24/21 18:15 Nucleated RBCs # 0.0 /100WBC 06/24/21 18:15 Sodium 141 mmol/L (136-145) 06/24/21 18:15 Potassium 3.4 mmol/L (3.5-5.1) L 06/24/21 18:15 Chloride 103 mmol/L (98-107) 06/24/21 18:15 Carbon Dioxide 26 mmol/L (22-29) 06/24/21 18:15 Anion Gap 15.4 (5-19) 06/24/21 18:15 BUN 16 mg/dL (6-20) 06/24/21 18:15 Creatinine 0.7 mg/dL (0.5-0.9) 06/24/21 18:15 GFR Calculation 87.5 mL/min (90-130) L 06/24/21 18:15 Glucose 106 mg/dL (65-115) 06/24/21 18:15 Calculated Osmolality 294 mOsm/kg (285-295) 06/24/21 18:15 Calcium 10.1 mg/dL (8.5-10.5) 06/24/21 18:15 Total Bilirubin 0.4 mg/dL (0.15-1.2) 06/24/21 18:15 AST 24 U/L (0-32) 06/24/21 18:15 ALT 12 U/L (0-33) 06/24/21 18:15 Alkaline Phosphatase 62 IU/L (35-105) 06/24/21 18:15 Total Protein 7.5 g/dL (6.6-8.7) 06/24/21 18:15 Albumin 4.6 g/dL (3.5-5.2) 06/24/21 18:15 Globulin 2.9 g/dL (1.3-4.6) 06/24/21 18:15 Salicylates < 0.3 mg/dL (3-10) L 06/24/21 18:15 Acetaminophen < 5.0 ug/mL (10-30) L 06/24/21 18:15 Ethyl Alcohol < 10 mg/dL (0-10) 06/24/21 18:15 Discharge Plan Discharge Patient Disposition: Admitted As Inpatient Admit Provider: Lanre Schrader Clinical Impression: Psychosis, Suicidal ideation Condition: Stable Coding Level of Care Code ED Talent Acquisition Manager for René Dubose
[2021-06-24 18:19] VITALS: RESP 17
[2021-06-24 18:25] LABS: Basophils % 0.4 %; Eosinophils # 0.1 10^3/uL (0.0-0.8); Eosinophils % 1.4 %; Hematocrit 43.1 % (37.0-47.0); Hemoglobin 13.9 g/dL (11.5-15.3); Lymphocytes # 1.6 10^3/uL (0.8-4.8); Lymphocytes % 22.8 %; Mean Corpuscular HGB Conc 32.3 g/dL (30.0-36.0); Mean Corpuscular Volume 89.8 fl (81-99); Mean Platelet Volume 8.7 fL (7.4-10.4); Monocytes # 0.5 10^3/uL (0.2-0.9); Monocytes % 6.6 %; Neutrophils # 4.77 10^3/uL (1.8-7.7); Neutrophils % 68.7 %; Nucleated Red Blood Cells % 0 %; Platelet Count 223 10^3/cmm (130-400); Red Cell Distribution Width 12.2 % (12.1-15.1)
[2021-06-24 18:46] LABS: Alanine Aminotransferase 12 U/L (0-33); Albumin Level 4.6 g/dL (3.5-5.2); Alkaline Phosphatase 62 IU/L (35-105); Anion Gap 15.4 (5-19); Aspartate Amino Transferase 24 U/L (0-32); Blood Urea Nitrogen 16 mg/dL (6-20); Calcium 10.1 mg/dL (8.5-10.5); Carbon Dioxide 26 mmol/L (22-29); Chloride 103 mmol/L (98-107); Globulin 2.9 g/dL (1.3-4.6); Glomerular Filtration Rate 87.5 mL/min (90-130); Glucose 106 mg/dL (65-115); Osmolality Calculated 294 mOsm/kg (285-295); Potassium 3.4 mmol/L (3.5-5.1); Sodium 141 mmol/L (136-145); Total Bilirubin 0.4 mg/dL (0.15-1.2); Total Protein 7.5 g/dL (6.6-8.7)
[2021-06-24 18:53] LABS: Acetaminophen < 5.0 ug/mL (10-30); Salicylate < 0.3 mg/dL (3-10)
[2021-06-24] MEDS: OLANZapine 10 mg ODT PO (19:30)
[2021-06-24 19:33] LABS: Alcohol Level < 10 mg/dL (0-10)
[2021-06-24 19:51] VITALS: BP 125/75; PULSE 91; RESP 18; TEMP 36.7; O2SAT 96
[2021-06-24] MEDS: OLANZapine 5 mg ODT PO (20:50)
[2021-06-24] MEDS: mirtazapine 15 mg Tablet PO (21:28)
[2021-06-24] MEDS: quetiapine 100 mg Tablet 200 MG PO (21:29)
[2021-06-24] MEDS: trazodone 50 mg Tablet PO (21:29)
[2021-06-25 00:18] VITALS: BP 125/75; PULSE 91; RESP 18; TEMP 36.7; O2SAT 96
--- NOTE | 2021-06-25 03:19 | PC.ADMIT ---
Admission Note:55-year-old female who has a history of schizophrenia and bipolar per her report. She been having auditory and visual hallucinations including thoughts about harming herself this was several days ago spent a few weeks and she is taking her medications appropriately she states she did take them last night she has been using methamphetamine recently. She was highlighted a 96-hour hold was filled out. She is brought in here to be evaluated. She is awake alert oriented answers questions appropriately states she is not used methamphetamines for a couple of days and denies any suicidal homicidal ideation at this time denies any ongoing auditory or visual hallucination MD complaint: suicidal ideation The patient,Brooklyn Gutierrez,55 y/o, was given written information regarding hospital policies, unit procedures and contact persons. Vital Signs - 8 hr 06/24/21 19:51 06/25/21 00:18 Temperature 98.1 F 98.1 F Pulse Rate 91 91 Respiratory Rate 18 18 Blood Pressure 125/75 125/75 Pulse Oximetry 96 96
[2021-06-25 06:00] VITALS: BP 122/72; PULSE 77; RESP 16; TEMP 36.6; O2SAT 96
[2021-06-25] MEDS: sertraline 50 mg Tablet PO (08:17)
--- NOTE | 2021-06-25 09:54 | P.NPUHP_ITS ---
Providers/Chief Complaint Admitting Physician: Lanre Schrader MD Chief Complaint: 96'd ? HPI NPU History of Present Illness Brooklyn Gutierrez is a 55 year old female who emergency department with the following report: History of Present Illness:? HPI Narrative: 54-year-old female presents to the emergency room with multiple complaints she regularly uses methamphetamines her last use was yesterday.? She is extremely disheveled difficult to get her to nail down a specific reason while she is here suspect she is still under the influence of methamphetamines at this time.? States she can think about hurting herself but would never do it she has no plan she cites scientologist disincentive to harming herself states I could never actually kill myself.? She also complains of vaginal odor although she denies any vaginal discharge dysuria urgency or frequency states this only occurs when she has sex has been going on for some time.? She is wanting it to be admitted to the MPU. complaint: feels depressed Onset (ago): day(s) Duration: constant History of same: Yes Relieving factors: none Exacerbating factors: drug use Context: recent drug abuse Associated psychiatric symptoms: depression and racing thoughts Associated symptoms: Deny auditory hallucinations, visual hallucinations, delusions, depression, homicidal ideation, suicidal ideation or racing thoughts Treatments prior to arrival: none If self harm: admits thoughts of self harm (Has no intent to harm herself.? She cites scientologist as a reason that keeps her from harming herself.). She came with affidavits and on 96-hour hold already started by the court. The affidavit from the correctional case records supervisor states: Brooklyn initially entered [facility] case management program with this DIRECTOR OF COLLECTIONS on May 24. She was unable to maintain sobriety and travel back to [facility] on May 31. She reported this DIRECTOR OF COLLECTIONS that she was actively using methamphetamine. Brooklyn has a history of multiple inpatient NPU admissions due to psychotic behavior and substance abuse, most recently discharged May 25. Beginning June 18, Brooklyn repeatedly contacts for [facility] cell phone leaving voicemail about feeling unsafe , having paranoid behavior stating I heard kids across the street in a house that abandoned she leaves 4-6 voicemails on the phone each day with multiple bizarre statements. Brooklyn would benefit from hospitalization to address her psychosis as she c could easily escalate to exhibiting safety issues including suicidal or homicidal behavior. She was admitted to the neuropsychiatry unit for definitive treatment of these issues. She was found in bed at 10 AM. She was not happy about being woken up. She said a couple of times that she was not thinking right because she was so sleepy. She admitted to recent methamphetamine abuse that could be part of her problem. She said that she was tired of people saying that she was making statements about killing herself. She took some aspirin and mid-April but has not tried to hurt herself since then. She says that she has not been taking her bedtime medications very well recently. She also thinks that could be part of her problem. She agrees to restart her medications as they have been prescribed at the last hospitalization with the assumption that she will improve. Below are the narratives from admission on the last 2 hospitalizations. Both times she was continued on her outpatient medications with the addition of Abilify 10 mg every morning. 06/07 She was admitted to the neuropsychiatric unit for definitive treatment of those issues.? Unfortunately for her she presents with essentially the exact presentation she had to the inpatient facility last year almost today.? She reports having multiple inpatient hospitalizations without current outpatient services.? She did not continue the medication which was Abilify 10 mg p.o. every morning after she left the hospital.? And has not been taking it.? She is not a very positive or reliable historian as she is giving loose information on her drug use reporting that she has not had any methamphetamine recently, then Xanax as of 2 weeks ago then raising questions if she did not have some prior to admission.? Her entire focus continues to be on her children and what are most likely delusional thoughts about hearing her kids, believing she is seeing her kids and photographs etc.? She gets frustrated when we discussed the impact of methamphetamines and the causing of psychosis which she most certainly has as she focuses on whether child trafficking should be something that is researched no matter what and that she is more focused on stopping child trafficking than considering medication.? We discussed the fact that methamphetamine induced psychosis is clearly at work here either exacerbating a baseline psychosis or being the full source of said psychosis but that until she stops using it and gets her psychosis under control she cannot give any assistance to her kids even if any of it was true.? We discussed the risk-benefit and alternatives of restarting Abilify 10 mg p.o. every morning and she understood to proceed as is documented in his note.? An excerpt of her last note is included below for context given that her presentation has not changed and she denies any substantive changes in her history since then. 06/06Shlayne was admitted to the neuropsychiatric unit for definitive treatment of those issues.? She reports today?she did have some really rough times back in 2015 2016 with a lot of loss including her .? She has had outpatient services in the past through [facility] but that was only briefly and many years ago.? She identifies that she self medicated with methamphetamine. ? She reports frequent threats about a pack a day, not drinking alcohol not using cannabis or any illicit drugs except for methamphetamine.? She reports that she plans on outpatient rehab and has had 1 DUI.? She endorses depression and anxiety and overall confusion.? She initially downplays the impact of addiction on the issues that she is talking about.? But she does endorse her mother and sister dying last year, her kids being taken away versus her giving up custody of him being in [place] but then reports hearing of screaming where she is living right now and finding clues to drug trafficking in that house.? We discussed the risk benefits and alternatives of her starting Abilify 10 mg p.o. every morning and she understood and agreed to proceed as is documented in this note.? She denies any history of suicide attempts. aripiprazole 10 mg Tablet ?? 10 mg PO DAILY 30 Days Qty: 30 1RF Continued ? trazodone 50 mg tablet ?? 50 mg PO DAILY 30 Days Qty: 30 1RF ? quetiapine 200 mg tablet ?? 200 mg PO BEDTIME 30 Days Qty: 30 1RF ? mirtazapine 15 mg tablet ?? 15 mg PO BEDTIME 30 Days Qty: 30 1RF ? sertraline 50 mg tablet ?? 50 mg PO DAILY 30 Days Qty: 30 1RF Meds NPU Home Medications Medication Instructions Recorded Confirmed Last Taken Type mirtazapine 15 mg tablet 15 mg PO BEDTIME 30 Days #30 tab 05/25/21 06/24/21 Unknown Rx quetiapine 200 mg tablet 200 mg PO BEDTIME 30 Days #30 tab 05/25/21 06/24/21 Unknown Rx sertraline 50 mg tablet 50 mg PO DAILY 30 Days #30 tab 05/25/21 06/24/21 Unknown Rx trazodone 50 mg tablet 50 mg PO DAILY 30 Days #30 tab 05/25/21 06/24/21 Unknown Rx Allergies Allergy/AdvReac Type Severity Reaction Status Date / Time No Known Allergies Allergy Verified 05/21/20 07:48 PFSH NPU PFSH: Medical History (Updated 06/24/21 @ 19:06 by Keith Mcmahon DO) Acute anxiety Psychosis Substance abuse Surgical History (Updated 05/26/21 @ 00:00 by ) No significant past surgical history Mental Status Exam MSE Comments: This is a well-nourished well-developed white female with hospital scrubs on with limited grooming and eye contact.? No abnormal movements except for mild psychomotor agitation.? Somewhat Cooperative with exam but really wanted to go back to sleep.? Speech was normal rate and volume.? Mood described as worried, affect congruent.? Thought process mostly organized.? Thought content: Patient denied any suicidal or homicidal ideation, there is no delusions reported but paranoid and persecutory delusions noted, she denied any auditory or visual hallucinations but some of her story sounds like she was having both prior to admission.? Attention and concentration were intact and memory was unreliable but none were formally tested.? She is alert and oriented x3.? Insight and judgment are impaired, impulse control is impaired.. Vitals/I&O/Wt Last Vital Signs Temp 97.9 F 06/25/21 06:00 Pulse 77 06/25/21 06:00 Resp 16 06/25/21 06:00 BP 122/72 06/25/21 06:00 Pulse Ox 96 06/25/21 06:00 Weight last 48 hrs Weight 65.317 kg Data NPU : 06/24/21 18:15 06/24/21 18:15 A&P Assessment and plan (1) Suicidal ideation: Status: Acute (2) Methamphetamine dependence: Status: Acute (3) Substance abuse: Status: Acute (4) Acute anxiety: Status: Acute (5) Psychosis: Status: Acute Plan This is a 55-year-old white female with a long history of mental health and addiction issues with active methamphetamine dependence and psychosis either cre ated or exacerbated by her methamphetamine use who presents off of her medication and open to restarting it. 1.? Continue current medication.? Restart Abilify 10 mg p.o. every morning. 2.? Continue every 15 minute checks for safety. 3.? Encourage individual, group and milieu therapies. 4.? Encourage sober living treatment after discharge at the highest level of care to which he is willing to commit. Involuntary Hold Information 96 Hour Hold: 96 Hour Involuntary Admission: Yes Attestations NPU Medical Necessity Statement*: Inpatient hospitalization is medically necessary and the clinically appropriate intervention at this time. We will initiate medications and make changes as indicated. She will be in the hospital for over 2 midnights. Likely length of stay 4-6 days Coding Level of Care Code Acute Can Pusher for René Fwd Diagnoses Suicidal ideation R45.851 Methamphetamine dependence F15.20 Substance abuse F19.10 Acute anxiety F41.9 Psychosis F29
[2021-06-25] MEDS: OLANZapine 5 mg ODT PO (10:59)
[2021-06-25] MEDS: ARIPiprazole 10 mg Tablet PO (10:59)
[2021-06-25 13:23] VITALS: BP 93/55; PULSE 71; RESP 16; TEMP 36.9; O2SAT 95
[2021-06-25] MEDS: trazodone 50 mg Tablet PO (20:13)
[2021-06-25] MEDS: mirtazapine 15 mg Tablet PO (20:14)
[2021-06-25] MEDS: quetiapine 100 mg Tablet 200 MG PO (20:14)
[2021-06-25 22:00] VITALS: BP 112/82; PULSE 98; RESP 18; TEMP 37.4; O2SAT 97
[2021-06-26 05:51] VITALS: BP 110/80; PULSE 98; RESP 18; TEMP 37.2; O2SAT 97; BMI 22.4
--- NOTE | 2021-06-26 09:05 | W.PM.NPUPNS ---
Subjective NPU Subjective: She said that she thinks that she is doing better but it is too early to tell because she just woke up. She understands that methamphetamine is causing these problems. She feels like if she gets away from her boyfriend of the last 4 years she can stop using methamphetamine. She would not say whether he chooses not because that would not be fair. She is planning on going back to him and also use of methamphetamine again. Mental Status Exam MSE Comments: This is a well-nourished well-developed white female with hospital scrubs on with limited grooming and eye contact.? No abnormal movements except for mild psychomotor agitation.? Somewhat Cooperative with exam but really wanted to go back to sleep.? Speech was normal rate and volume.? Mood described as worried, affect congruent.? Thought process mostly organized.? Thought content: Patient denied any suicidal or homicidal ideation, there is no delusions reported but paranoid and persecutory delusions noted, she denied any auditory or visual hallucinations but some of her story sounds like she was having both prior to admission.? Attention and concentration were intact and memory was unreliable but none were formally tested.? She is alert and oriented x3.? Insight and judgment are impaired, impulse control is impaired.. Cognition: Patient Appearance: Appropriate Level of Consciousness: Awake, Alert, Appropriate and Follows Commands Patient Cognition Impaired: No Ability to Follow Directions: Good Patient Orientation (long list): Person, Place and Birthday Comprehension Ability: No Impairment Hallucination Type: None Delusion Description: Not Present Thought Process: Appropriate Affect: Affect Description: Anxious and Guarded Behavior: Patient Behavior: Appropriate and Cooperative Speech Pattern: Appropriate and Clear Vitals/I&O/Wt Last Vital Signs Temp 99 F 06/26/21 05:51 Pulse 98 06/26/21 05:51 Resp 18 06/26/21 05:51 BP 110/80 06/26/21 05:51 Pulse Ox 97 06/26/21 05:51 Weight last 48 hrs Weight 64.864 kg Weight 65.317 kg Data NPU : 06/24/21 18:15 06/24/21 18:15 A&P Assessment and plan (1) Suicidal ideation: Status: Acute (2) Methamphetamine dependence: Status: Acute (3) Substance abuse: Status: Acute (4) Acute anxiety: Status: Acute (5) Psychosis: Status: Acute Plan This is a 55-year-old white female with a long history of mental health and addiction issues with active methamphetamine dependence and psychosis either created or exacerbated by her methamphetamine use who presents off of her medication and open to restarting it. 1.? Continue current medication.? Restart Abilify 10 mg p.o. every morning. 2.? Continue every 15 minute checks for safety. 3.? Encourage individual, group and milieu therapies. 4.? Encourage sober living treatment after discharge at the highest level of care to which he is willing to commit. Involuntary Hold Information 96 Hour Hold: 96 Hour Involuntary Admission: Yes Attestations NPU Medical Necessity Statement*: Inpatient hospitalization is medically necessary and the clinically appropriate intervention at this time. We will initiate medications and make changes as indicated. Coding Level of Care Code Acute Aviation Safety Inspector for René Dubose Diagnoses Suicidal ideation R45.851 Methamphetamine dependence F15.20 Substance abuse F19.10 Acute anxiety F41.9 Psychosis F29
[2021-06-26] MEDS: ARIPiprazole 10 mg Tablet PO (09:57)
[2021-06-26] MEDS: sertraline 50 mg Tablet PO (09:57)
[2021-06-26 14:00] VITALS: BP 125/74; PULSE 91; RESP 18; TEMP 37.7; O2SAT 96
[2021-06-26 20:07] VITALS: BP 143/81; PULSE 81; RESP 20; TEMP 36.8; O2SAT 93
[2021-06-26] MEDS: quetiapine 100 mg Tablet 200 MG PO (20:51)
[2021-06-26] MEDS: mirtazapine 15 mg Tablet PO (20:51)
[2021-06-26] MEDS: trazodone 50 mg Tablet PO (20:51)
[2021-06-27 06:00] VITALS: BP 122/79; PULSE 78; RESP 20; TEMP 36.7; O2SAT 95
--- NOTE | 2021-06-27 08:18 | PC.NURSE ---
am assessment Patient is resting quietly in bed. She awakens easily to verbal stimuli. She denies SI/HI or hallucinations. She is alert and oriented in all aspects. Hr regular with ppp x 2, no edema noted. Lungs clear with breathing even and non labored. Bowel sounds active in all quads. Denies pain with urination. Denies all other pain. Skin is warm and dry.
[2021-06-27] MEDS: ARIPiprazole 10 mg Tablet PO (09:11)
[2021-06-27] MEDS: sertraline 50 mg Tablet PO (09:11)
--- NOTE | 2021-06-27 11:28 | NPU.GN ---
[facility] Topic:Erick To General Mood of Group: [place] did not attend group this morning. [place] wanted to sleep.
--- NOTE | 2021-06-27 13:45 | W.PM.NPUPNS ---
Subjective NPU Subjective: She said that she thinks that she is doing better. She understands that methamphetamine is causing these problems. She feels like if she gets away from her boyfriend of the last 4 years she can stop using methamphetamine. She is reconsidering whether she should live with him or not. Mental Status Exam MSE Comments: This is a well-nourished well-developed white female with hospital scrubs on with limited grooming and eye contact.? No abnormal movements.? Psychomotor activity is normal. He is more cooperative with the evaluation today. Speech was normal rate and volume.? Mood described as worried, affect congruent.? Thought process mostly organized.? Thought content: Patient denied any suicidal or homicidal ideation, there is no delusions reported but paranoid and persecutory delusions noted, she denied any auditory or visual hallucinations but some of her story sounds like she was having both prior to admission.? Attention and concentration were intact and memory was unreliable but none were formally tested.? She is alert and oriented x3.? Insight and judgment are impaired, impulse control is impaired.. Cognition: Patient Appearance: Appropriate Level of Consciousness: Awake, Alert, Appropriate and Follows Commands Patient Cognition Impaired: No Ability to Follow Directions: Good Patient Orientation (long list): Person, Place, Time and Name Comprehension Ability: No Impairment Hallucination Type: None Delusion Description: Not Present Thought Process: Appropriate Affect: Affect Description: Calm Behavior: Patient Behavior: Cooperative Speech Pattern: Clear Vitals/I&O/Wt Last Vital Signs Temp 97.9 F 06/28/21 06:00 Pulse 81 06/28/21 06:00 Resp 16 06/28/21 06:00 BP 115/72 06/28/21 06:00 Pulse Ox 95 06/28/21 06:00 Data NPU : 06/24/21 18:15 06/24/21 18:15 A&P Assessment and plan (1) Suicidal ideation: Status: Acute (2) Methamphetamine dependence: Status: Acute (3) Substance abuse: Status: Acute (4) Acute anxiety: Status: Acute (5) Psychosis: Status: Acute Plan This is a 55-year-old white female with a long history of mental health and addiction issues with active methamphetamine dependence and psychosis either created or exacerbated by her methamphetamine use who presents off of her medication and open to restarting it. 1.? Continue current medication.? Restart Abilify 10 mg p.o. every morning. 2.? Continue every 15 minute checks for safety. 3.? Encourage individual, group and milieu therapies. 4.? Encourage sober living treatment after discharge at the highest level of care to which he is willing to commit. Involuntary Hold Information 96 Hour Hold: 96 Hour Involuntary Admission: Yes Attestations NPU Medical Necessity Statement*: Inpatient hospitalization is medically necessary and the clinically appropriate intervention at this time. We will initiate medications and make changes as indicated. Coding Level of Care Code Acute Plate Drying Machine Tender for Chaya Fwd Diagnoses Suicidal ideation R45.851 Methamphetamine dependence F15.20 Substance abuse F19.10 Acute anxiety F41.9 Psychosis F29
[2021-06-27 14:00] VITALS: BP 117/53; PULSE 86; RESP 17; TEMP 37.4; O2SAT 92
[2021-06-27] MEDS: nicotine 21 mg Patch 1 PATCH TRANSDERMA (15:03)
[2021-06-27 20:07] VITALS: BP 135/77; PULSE 87; RESP 18; TEMP 36.4; O2SAT 97
[2021-06-27] MEDS: quetiapine 100 mg Tablet 200 MG PO (20:22)
[2021-06-27] MEDS: mirtazapine 15 mg Tablet PO (20:22)
[2021-06-27] MEDS: trazodone 50 mg Tablet PO (20:23)
[2021-06-28 06:00] VITALS: BP 115/72; PULSE 81; RESP 16; TEMP 36.6; O2SAT 95
[2021-06-28] MEDS: sertraline 50 mg Tablet PO (08:26)
[2021-06-28] MEDS: ARIPiprazole 10 mg Tablet PO (08:26)
--- NOTE | 2021-06-28 11:17 | NPU.GN ---
[facility] Topic: Roll The Dice General Mood of Group: [place] did not attend group today.
--- NOTE | 2021-06-28 12:48 | P.NPUPN_ITS ---
Subjective NPU Subjective: She said that she is definitely doing better. She has decided to go to [facility] [place]. She is not going back with her boyfriend. She understands that if she goes back there she will probably use methamphetamine again. She said that they will have a quick turnaround and hopefully can go there tomorrow. She agrees to continue taking her current medications. We will call and see if the facility that she has chosen will allow her to take medications. Mental Status Exam MSE Comments: This is a well-nourished well-developed white female with hospital scrubs on with limited grooming and eye contact.? No abnormal movements.? Psychomotor activity is normal. He is more cooperative with the evaluation today. Speech was normal rate and volume.? Mood is good, affect congruent.? Thought process mostly organized.? Thought content: Patient denied any suicidal or homicidal ideation, there is no delusions reported but paranoid and persecutory delusions noted, she denied any auditory or visual hallucinations.? Attention and concentration were intact and memory seems reliable but none were formally tested.? She is alert and oriented x3.? Insight and judgment are poor but may be improving, impulse control is impaired.. Cognition: Patient Appearance: Appropriate Level of Consciousness: Awake, Alert, Appropriate and Follows Commands Patient Cognition Impaired: No Ability to Follow Directions: Good Patient Orientation (long list): Person, Place, Time and Name Comprehension Ability: No Impairment Hallucination Type: None Delusion Description: Not Present Thought Process: Appropriate Affect: Affect Description: Calm Behavior: Patient Behavior: Cooperative Speech Pattern: Clear Vitals/I&O/Wt Last Vital Signs Temp 97.9 F 06/28/21 06:00 Pulse 81 06/28/21 06:00 Resp 16 06/28/21 06:00 BP 115/72 06/28/21 06:00 Pulse Ox 95 06/28/21 06:00 Data NPU : 06/24/21 18:15 06/24/21 18:15 A&P Assessment and plan (1) Suicidal ideation: Status: Acute (2) Methamphetamine dependence: Status: Acute (3) Substance abuse: Status: Acute (4) Acute anxiety: Status: Acute (5) Psychosis: Status: Acute Plan This is a 55-year-old white female with a long history of mental health and addiction issues with active methamphetamine dependence and psychosis either created or exacerbated by her methamphetamine use who presents off of her medication and open to restarting it. 1.? Continue current medication.? Restart Abilify 10 mg p.o. every morning. 2.? Continue every 15 minute checks for safety. 3.? Encourage individual, group and milieu therapies. 4.? Encourage sober living treatment after discharge at the highest level of care to which he is willing to commit. Involuntary Hold Information 96 Hour Hold: 96 Hour Involuntary Admission: Yes Attestations NPU Medical Necessity Statement*: Inpatient hospitalization is medically necessary and the clinically appropriate intervention at this time. We will initiate medications and make changes as indicated. Coding Level of Care Code Acute Real Estate Rep for René Dubose Diagnoses Suicidal ideation R45.851 Methamphetamine dependence F15.20 Substance abuse F19.10 Acute anxiety F41.9 Psychosis F29
[2021-06-28 13:56] VITALS: BP 115/71; PULSE 86; RESP 17; TEMP 36.7; O2SAT 96
[2021-06-28 20:29] VITALS: BP 107/71; PULSE 83; RESP 16; TEMP 36.7; O2SAT 96
[2021-06-28] MEDS: quetiapine 100 mg Tablet 200 MG PO (21:09)
[2021-06-28] MEDS: mirtazapine 15 mg Tablet PO (21:09)
[2021-06-28] MEDS: trazodone 50 mg Tablet PO (21:09)
[2021-06-29 06:00] VITALS: BP 129/84; PULSE 74; RESP 20; TEMP 36.7; O2SAT 95
--- NOTE | 2021-06-29 07:56 | P.NPUPN_ITS ---
Subjective NPU Subjective: She has not heard from the [facility] to see if they will take her today. We called them yesterday and they will not allow her to take any of the psychotropic medications when she is there. She thinks that she can handle that fine. She does not feel that she has any psychosis when she is not using methamphetamine. She does not usually take the medication when she is not in the hospital. She agreed to stop the Abilify and if she does need to stay here any longer we will cut me nighttime medication in half. Mental Status Exam MSE Comments: This is a well-nourished well-developed white female with hospital scrubs on with limited grooming and eye contact.? No abnormal movements.? Psychomotor activity is normal. She is cooperative with the evaluation today. Speech was normal rate and volume.? Mood is good, affect congruent.? Thought process mostly organized.? Thought content: Patient denied any suicidal or homicidal ideation, there is no delusions paranoid or persecutory delusions, she denied any auditory or visual hallucinations.? Attention and concentration were intact and memory seems reliable but none were formally tested.? She is alert and oriented x3.? Insight and judgment are poor but may be improving, impulse control is impaired.. Cognition: Patient Appearance: Appropriate Level of Consciousness: Awake, Alert, Appropriate and Follows Commands Patient Cognition Impaired: No Ability to Follow Directions: Good Patient Orientation (long list): Person, Place, Time, Name, Age and Birthday Comprehension Ability: No Impairment Hallucination Type: None Delusion Description: Not Present Thought Process: Appropriate Affect: Affect Description: Appropriate and Calm Behavior: Patient Behavior: Appropriate and Cooperative Speech Pattern: Appropriate and Clear Vitals/I&O/Wt Last Vital Signs Temp 98.1 F 06/29/21 06:00 Pulse 74 06/29/21 06:00 Resp 20 H 06/29/21 06:00 BP 129/84 06/29/21 06:00 Pulse Ox 95 06/29/21 06:00 Data NPU : 06/24/21 18:15 06/24/21 18:15 A&P Assessment and plan (1) Suicidal ideation: Status: Acute (2) Methamphetamine dependence: Status: Acute (3) Substance abuse: Status: Acute (4) Acute anxiety: Status: Acute (5) Psychosis: Status: Acute Plan This is a 55-year-old white female with a long history of mental health and a ddiction issues with active methamphetamine dependence and psychosis either created or exacerbated by her methamphetamine use who presents off of her medication and open to restarting it. 1.? Continue current medication.? Stop Abilify 10 mg p.o. every morning. 2.? Continue every 15 minute checks for safety. 3.? Encourage individual, group and milieu therapies. 4.? Encourage sober living treatment after discharge at the highest level of care to which he is willing to commit. Involuntary Hold Information 96 Hour Hold: 96 Hour Involuntary Admission: Yes Attestations NPU Medical Necessity Statement*: Inpatient hospitalization is medically necessary and the clinically appropriate intervention at this time. We will initiate medications and make changes as indicated. Coding Level of Care Code Acute Restaurant District Manager for René Dubose Diagnoses Suicidal ideation R45.851 Methamphetamine dependence F15.20 Substance abuse F19.10 Acute anxiety F41.9 Psychosis F29
[2021-06-29] MEDS: sertraline 50 mg Tablet PO (09:54)
--- NOTE | 2021-06-29 11:23 | NPU.GN ---
[facility] Topic:Coping Mechanisms Activity General Mood of Group: [place] did not attend group today.
[2021-06-29 14:00] VITALS: BP 113/77; PULSE 99; RESP 16; TEMP 37.1; O2SAT 96
[2021-06-29 15:48] VITALS: BP 113/77; PULSE 99; RESP 16; TEMP 37.1; O2SAT 96
--- NOTE | 2021-07-02 12:49 | P.NPUDS_ITS ---
Diagnoses at Discharge Discharge Diagnosis (1) Suicidal ideation: Status: Resolved (2) Methamphetamine dependence: Status: Acute (3) Substance abuse: Status: Acute (4) Acute anxiety: Status: Acute (5) Psychosis: Status: Resolved Reason for Visit Reason for Visit: 96'd ? Brief History: History of Present Illness [place] Gutierrez is a 55 year old female who emergency department with the following report: History of Present Illness:?HPI Narrative: 54-year-old female presents to the emergency room with multiple complaints she regularly uses methamphetamines her last use was yesterday.? She is extremely disheveled difficult to get her to nail down a specific reason while she is here suspect she is still under the influence of methamphetamines at this time.? States she can think about hurting herself but would never do it she has no plan she cites scientology disincentive to harming herself states I could never actually kill myself.? She also complains of vaginal odor although she denies any vaginal discharge dysuria urgency or frequency states this only occurs when she has sex has been going on for some time.? She is wanting it to be admitted to the MPU. ?MD complaint: feels depressed ?Onset (ago): day(s) ?Duration: constant ?History of same: Yes ?Relieving factors: none ?Exacerbating factors: drug use ?Context: recent drug abuse ?Associated psychiatric symptoms: depression and racing thoughts ?Associated symptoms: Deny auditory hallucinations, visual hallucinations, delusions, depression, homicidal ideation, suicidal ideation or racing thoughts ?Treatments prior to arrival: none ?If self harm: admits thoughts of self harm (Has no intent to harm herself.? She cites scientology as a reason that keeps her from harming herself.). She came with affidavits and on 96-hour hold already started by the court. The affidavit from the piano case and bench assembler states: Broolkyn initially entered [facility] case management program with this BASEBALL INSPECTOR AND REPAIRER on May 24.? She was unable to maintain sobriety and travel back to [facility] on May 31.? She reported this BASEBALL INSPECTOR AND REPAIRER that she was actively using methamphetamine.? [place] has a history of multiple inpatient NPU admissions due to psychotic behavior and substance abuse, most recently discharged May 25.? Beginning June 18, [place] repeatedly contacts for [facility] cell phone leaving voicemail about feeling unsafe , having paranoid behavior stating I heard kids across the street in a house that abandoned she leaves 4-6 voicemails on the phone each day with multiple bizarre statements.? [place] would benefit from hospitalization to address her psychosis as she c could easily escalate to exhibiting safety issues including suicidal or homicidal behavior. She was admitted to the neuropsychiatry unit for definitive treatment of these issues.? She was found in bed at 10 AM.? She was not happy about being woken up.? She said a couple of times that she was not thinking right because she was so sleepy.? She admitted to recent methamphetamine abuse that could be part of her problem.? She said that she was tired of people saying that she was making statements about killing herself.? She took some aspirin and mid-April but has not tried to hurt herself since then.? She says that she has not been taking her bedtime medications very well recently.? She also thinks that could be part of her problem.? She agrees to restart her medications as they have been prescribed at the last hospitalization with the assumption that she will improve. Hospital Course Hospital Course She slowly acclimated to the individual, group and milieu therapies provided. She was started on Abilify but that was discontinued the day of discharge because the treatment program where she was excepted would not allow her to take it there. She was thought that she would do okay without them. He has psychosis when she takes methamphetamine. She tolerated these doses and showed steady improvement during her stay. She was able to contract for safety outside hospital prior to discharge. During the hospitalization, patient had routine laboratory studies which were within normal limits except for few outliers. Additionally there was a general medical evaluation which was also within normal limits and revealed no new acute processes. Discharge Summary: At the time of discharge, lethality was denied and psychosis was resolving. Mood and anxiety were well managed. Patient endorsed a plan to follow-up with the aftercare recommendations of the treatment team. Patient was evaluated and deemed to be absent credible lethality, and had achieved the maximum benefit from an inpatient hospitalization, so was discharged. Involuntary Hold Information 96 Hour Hold: 96 Hour Involuntary Admission: Yes Mental Status Exam MSE Comments: This is a well-nourished well-developed white female with hospital scrubs on with limited grooming and eye contact.? No abnormal movements.? Psychomotor activity is normal. She is cooperative with the evaluation today. Speech was normal rate and volume.? Mood is good, affect congruent.? Thought process mostly organized.? Thought content: Patient denied any suicidal or homicidal ideation, there is no delusions paranoid or persecutory delusions, she denied any auditory or visual hallucinations.? Attention and concentration were intact and memory seems reliable but none were formally tested.? She is alert and oriented x3.? Insight and judgment are poor but may be improving, impulse control is impaired.. Cognition: Patient Appearance: Appropriate Level of Consciousness: Awake, Alert, Appropriate and Follows Commands Patient Cognition Impaired: No Ability to Follow Directions: Good Patient Orientation (long list): Person, Place, Time, Name, Age and Birthday Comprehension Ability: No Impairment Hallucination Type: None Delusion Description: Not Present Thought Process: Appropriate Affect: Affect Description: Appropriate Behavior: Patient Behavior: Appropriate and Cooperative Speech Pattern: Appropriate and Clear Discharge Data Studies Completed and Pending: Laboratory Results WBC 7.0 10^3/uL (4.0- 10.0) 06/24/21 18:15 RBC 4.80 10^6/uL (4.1 -5.3) 06/24/21 18:15 Hgb 13.9 g/dL (11.5-1 5.3) 06/24/21 18:15 Hct 43.1 % (37.0-47.0 ) 06/24/21 18:15 MCV 89.8 fl (81-99) 06/24/21 18:15 MCH 29.0 pg (28.0-34. 0) 06/24/21 18:15 MCHC 32.3 g/dL (30.0-3 6.0) 06/24/21 18:15 RDW 12.2 % (12.1-15.1 ) 06/24/21 18:15 Plt Count 223 10^3/cmm (130 -400) 06/24/21 18:15 MPV 8.7 fL (7.4-10.4) 06/24/21 18:15 Neut % (Auto) 68.7 % 06/24/21 18:15 Lymph % (Auto) 22.8 % 06/24/21 18:15 Harlan % (Auto) 6.6 % 06/24/21 18:15 Eos % (Auto) 1.4 % 06/24/21 18:15 Baso % (Auto) 0.4 % 06/24/21 18:15 Neut # (Auto) 4.77 10^3/uL (1.8 -7.7) 06/24/21 18:15 Lymph # (Auto) 1.6 10^3/uL (0.8- 4.8) 06/24/21 18:15 Harlan # (Auto) 0.5 10^3/uL (0.2- 0.9) 06/24/21 18:15 Eos # (Auto) 0.1 10^3/uL (0.0- 0.8) 06/24/21 18:15 Baso # (Auto) 0.0 10^3/uL (0.0- 0.1) 06/24/21 18:15 Nucleated RBC % (a uto) 0 % 06/24/21 18:15 Nucleated RBCs # 0.0 /100WBC 06/24/21 18:15 Sodium 141 mmol/L (136-1 45) 06/24/21 18:15 Potassium 3.4 mmol/L (3.5-5 .1) L 06/24/21 18:15 Chloride 103 mmol/L (98-10 7) 06/24/21 18:15 Carbon Dioxide 26 mmol/L (22-29) 06/24/21 18:15 Anion Gap 15.4 (5-19) 06/24/21 18:15 BUN 16 mg/dL (6-20) 06/24/21 18:15 Creatinine 0.7 mg/dL (0.5-0. 9) 06/24/21 18:15 GFR Calculation 87.5 mL/min (90-1 30) L 06/24/21 18:15 Glucose 106 mg/dL (65-115 ) 06/24/21 18:15 Calculated Osmolal ity 294 mOsm/kg (285- 295) 06/24/21 18:15 Calcium 10.1 mg/dL (8.5-1 0.5) 06/24/21 18:15 Total Bilirubin 0.4 mg/dL (0.15-1 .2) 06/24/21 18:15 AST 24 U/L (0-32) 06/24/21 18:15 ALT 12 U/L (0-33) 06/24/21 18:15 Alkaline Phosphata se 62 IU/L (35-105) 06/24/21 18:15 Total Protein 7.5 g/dL (6.6-8.7 ) 06/24/21 18:15 Albumin 4.6 g/dL (3.5-5.2 ) 06/24/21 18:15 Globulin 2.9 g/dL (1.3-4.6 ) 06/24/21 18:15 Salicylates < 0.3 mg/dL (3-10 ) L 06/24/21 18:15 Acetaminophen < 5.0 ug/mL (10-3 0) L 06/24/21 18:15 Ethyl Alcohol < 10 mg/dL (0-10) 06/24/21 18:15 Vitals: Last Vital Signs Temp 98.8 F 06/29/21 15:48 Pulse 99 06/29/21 15:48 Resp 16 06/29/21 15:48 BP 113/77 06/29/21 15:48 Pulse Ox 96 06/29/21 15:48 Discharge Plan Discharge Patient Disposition: Home Condition: Stable Prescriptions: Continued trazodone 50 mg tablet 50 mg PO DAILY 30 Days Qty: 30 1RF quetiapine 200 mg tablet 200 mg PO BEDTIME 30 Days Qty: 30 1RF mirtazapine 15 mg tablet 15 mg PO BEDTIME 30 Days Qty: 30 1RF sertraline 50 mg tablet 50 mg PO DAILY 30 Days Qty: 30 1RF Discharge Orders: Discharge Order (Routine); Ordered 06/29/21 Ordered By: Lanre Schrader Referrals: [facility] [Other] Discharge Diet: Regular Discharge Activity: Resume usual activity Patient Instructions: Opioid Safety Discharge Attestations NPU Time Spent in Discharge Care*: less than 30 min Specific Discharge Activities: Specific discharge activities: educating patient, discussing with heel caser/social workers/dc planners, documenting/o ther paperwork and evaluating patient/reviewing data Coding Level of Care Code Acute Chg FW DC note Diagnoses Suicidal ideation R45.851 Methamphetamine dependence F15.20 Substance abuse F19.10 Acute anxiety F41.9 Psychosis F29
== END 2021-06-29 16:45 | disposition home or self-care (01) | DRG 897 ==
LOC: ER 19:06 → NP 19:29
PROVIDERS: Family Medicine; Admitting Provider Psychiatry & Neurology Psychiatry; Emergency Provider Emergency Medicine; Visit Provider Psychiatry & Neurology Psychiatry
DX: F15.251 Other stimulant dependence with stimulant-induced psychotic disorder with hallucinations (principal); R45.851 Suicidal ideations; F41.9 Anxiety disorder, unspecified
CPT/HCPCS: 80053; 80307; 85025; 97165; 99285

== ENCOUNTER 2022-05-23 20:41 | Inpatient (IN) | payer MEDICAID, SELFPAY ==
[2022-05-23 20:57] VITALS: BP 121/76; PULSE 103; RESP 22; TEMP 37; O2SAT 96; BMI 22.7
--- NOTE | 2022-05-23 21:08 | W.ED.PSYCHS ---
HPI - Psych General: Chief Complaint: Psychiatric Symptoms Stated Complaint: Sent by crisis center Time Seen by Provider: 05/23/22 21:08 History of Present Illness: Ms. Gutierrez is a 56-year-old lady with history of substance abuse and anxiety presenting to the emergency department for mental health exam. She reports anxiety earlier today that has largely resolved upon my evaluation however in talking with the patient she makes many statements which are concerning for psychosis. She reports substance abuse yesterday and has had increased paranoia. She alludes to a male multiple times who she is afraid of and is scared that she will be hurt if she leaves. She also reports that he has the capability to reach her here in the hospital. Though she denies suicidal thoughts she reports fearing for her life from this individual and believes that she may be killed due to failure to quit using drugs. She cannot further articulate specifics, she does not seem to have a safe plan for discharge and offers very limited insight. Onset (ago): hour(s) Context: recent drug abuse Associated psychiatric symptoms: delusions and other Review of Systems General: Reports: 10 or more systems reviewed and unremarkable except in HPI and below PFS ED PFSH: Medical History Acute anxiety Psychosis Substance abuse Surgical History No significant past surgical history Physical Exam Const: COMMON NORMALS: alert GENERAL APPEARANCE: cooperative and well developed HENMT: COMMON NORMALS: normocephalic and atraumatic HEAD & SCALP: normocephalic and atraumatic Eye: COMMON NORMALS: conjunctivae normal CONJUNCTIVA: Yes conjunctivae normal SCLERA: sclerae normal Neck/C-Spine: COMMON NORMALS: supple GENERAL: Yes trachea midline Resp: COMMON NORMALS: clear to auscultation bilaterally EFFORT & INSPECTION: Yes able to speak in complete sentences AUSCULTATION: clear to auscultation bilaterally Cardio: COMMON NORMALS: regular rate and regular rhythm RATE: regular rate RHYTHM: regular rhythm GI: COMMON NORMALS: Soft to palpation PALPATION: Yes Soft to palpation and No Tenderness to palpation present (GI) Extremity: GENERAL: Yes normal exam except as noted and No edema Neuro: COMMON NORMALS: moves all extremities SENSORIUM/ORIENTATION: Yes alert and No Orientation impaired Psych: ATTITUDE: Yes paranoid and Yes evasive ACTIVITY/MOTOR BEHAVIOR: Yes fidgeting and Yes disorganized behavior MOOD & AFFECT: Yes anxious and Yes fearful THOUGHT PROCESS: Illogical thought process present THOUGHT CONTENT: Yes other INSIGHT: Limited insight present (Psych) JUDGEMENT: Fair judgement present (Psych) Course Vital Signs: Vital signs: Vital Signs Temperature 98.4 F 05/29/22 15:35 Pulse Rate 102 H 05/29/22 15:35 Respiratory Rate 17 05/29/22 15:35 Blood Pressure 111/71 05/29/22 15:35 Pulse Oximetry 96 05/29/22 15:35 Oxygen Delivery Me thod 05/29/22 06:00 MDM - Psych Medical Decision Making 56-year-old lady with psychiatric history and history of substance abuse presenting with initial anxiety however patient exhibits evidence of psychosis. I suspect that this may be secondary to substance abuse however this is somewhat unclear. Exam as above, patient is nontoxic and denies physical injuries. Labs with no significant hematologic or metabolic abnormalities. TSH is normal. Toxic ingestions are negative. hCG negative. Urinalysis and UDS are pending. The patient initially desired inpatient management however subsequently wished to leave. Given current mental state and reported symptoms I do not feel that the patient is safe for discharge. For patient's safety I placed her on a 96-hour hold. She continued to exhibit psychotic behavior including paranoia and hallucinations believing that people are talking about her in the halls. She requires frequent redirection. Medication for anxiolysis ordered and psychosis Given reported clinical history and physical exam no indication for imaging at this time. Based on ED evaluation at this point there is no obvious condition that would preclude the patient from inpatient management psychiatric concerns/symptoms. Medical Records I reviewed the patient's medical records. Lab Data I reviewed the patient's lab results. 05/23/22 21:17 05/23/22 21:17 Laboratory Results WBC 7.6 10^3/uL (4.0-10.0) 05/23/22 21:17 RBC 4.89 10^6/uL (4.1-5.3) 05/23/22 21:17 Hgb 14.2 g/dL (11.5-15.3) 05/23/22 21:17 Hct 44.1 % (37.0-47.0) 05/23/22 21:17 MCV 90.2 fl (81-99) 05/23/22 21:17 MCH 29.0 pg (28.0-34.0) 05/23/22 21:17 MCHC 32.2 g/dL (30.0-36.0) 05/23/22 21:17 RDW 12.7 % (12.1-15.1) 05/23/22 21:17 Plt Count 213 10^3/cmm (130-400) 05/23/22 21:17 MPV 9.5 fL (7.4-10.4) 05/23/22 21:17 Neut % (Auto) 67.7 % 05/23/22 21:17 Lymph % (Auto) 23.5 % 05/23/22 21:17 [place] % (Auto) 6.7 % 05/23/22 21:17 Eos % (Auto) 1.6 % 05/23/22 21:17 Baso % (Auto) 0.4 % 05/23/22 21:17 Neut # (Auto) 5.17 10^3/uL (1.8-7.7) 05/23/22 21:17 Lymph # (Auto) 1.8 10^3/uL (0.8-4.8) 05/23/22 21:17 [place] # (Auto) 0.5 10^3/uL (0.2-0.9) 05/23/22 21:17 Eos # (Auto) 0.1 10^3/uL (0.0-0.8) 05/23/22 21:17 Baso # (Auto) 0.0 10^3/uL (0.0-0.1) 05/23/22 21:17 Nucleated RBC % (auto) 0 % 05/23/22 21:17 Nucleated RBCs # 0.0 /100WBC 05/23/22 21:17 Sodium 139 mmol/L (136-145) 05/23/22 21:17 Potassium 3.8 mmol/L (3.5-5.1) 05/23/22 21:17 Chloride 104 mmol/L (98-107) 05/23/22 21:17 Carbon Dioxide 24 mmol/L (22-29) 05/23/22 21:17 Anion Gap 14.8 (5-19) 05/23/22 21:17 BUN 11 mg/dL (6-20) 05/23/22 21:17 Creatinine 0.7 mg/dL (0.5-0.9) 05/23/22 21:17 GFR Calculation 87.2 mL/min (90-130) L 05/23/22 21:17 Glucose 120 mg/dL (65-115) H 05/23/22 21:17 Calculated Osmolality 289 mOsm/kg (285-295) 05/23/22 21:17 Calcium 9.4 mg/dL (8.5-10.5) 05/23/22 21:17 Total Bilirubin 0.5 mg/dL (0.15-1.2) 05/23/22 21:17 AST 19 U/L (0-32) 05/23/22 21:17 ALT 12 U/L (0-33) 05/23/22 21:17 Alkaline Phosphatase 63 U/L (35-105) 05/23/22 21:17 Total Protein 6.5 g/dL (6.6-8.7) L 05/23/22 21:17 Albumin 4.6 g/dL (3.5-5.2) 05/23/22 21:17 Globulin 1.9 g/dL (1.3-4.6) 05/23/22 21:17 TSH 0.54 uIU/mL (0.27-4.20) 05/23/22 21:17 HCG, Qual Cancelled 05/23/22 21:17 HCG, Qual Negative (Negative) 05/23/22 21:17 Urine Color Yellow (Yellow) 05/23/22 10:00 Urine Appearance Clear (CLEAR) 05/23/22 10:00 Urine pH 5 (5-7) 05/23/22 10:00 Ur Specific [place] 1.020 (1.005-1.030) 05/23/22 10:00 Urine Protein Neg (Negative) 05/23/22 10:00 Urine Glucose (UA) Norm (Normal) 05/23/22 10:00 Urine Ketones Negative (Negative) 05/23/22 10:00 Urine Blood Neg (Negative) 05/23/22 10:00 Urine Nitrate Negative (Negative) 05/23/22 10:00 Urine Bilirubin Neg (Negative) 05/23/22 10:00 Urine Urobilinogen Neg mg/dL (Negative) 05/23/22 10:00 Ur Leukocyte Esterase 2+ (Negative) H 05/23/22 10:00 Urine RBC 0-4 /hpf (0-2) H 05/23/22 10:00 Urine WBC 5-10 /hpf (0-5) H 05/23/22 10:00 Ur Squamous Epith Cells 10-15 /hpf (0-5) H 05/23/22 10:00 Amorphous Sediment Not Reportable 05/23/22 10:00 Urine Bacteria 1+ /hpf (NONE) H 05/23/22 10:00 Urine Mucus 3+ /hpf 05/23/22 10:00 Salicylates < 0.3 mg/dL (3-10) L 05/23/22 21:17 Urine Opiates Screen Negative ng/mL (Negative) 05/23/22 10:00 Acetaminophen < 5.0 ug/mL (10-30) L 05/23/22 21:17 Ur Barbiturates Screen Negative ng/mL (Negative) 05/23/22 10:00 Ur Phencyclidine Scrn Negative ng/mL (Negative) 05/23/22 10:00 Ur Amphetamines Screen Positive ng/mL (Negative) H 05/23/22 10:00 U Benzodiazepines Scrn Positive ng/mL (Negative) H 05/23/22 10:00 Urine Cocaine Screen Negative ng/mL (Negative) 05/23/22 10:00 U Marijuana (THC) Screen Negative ng/mL (Negative) 05/23/22 10:00 Ethyl Alcohol < 10 mg/dL (0-10) 05/23/22 21:17 Influenza Type A Ag negative (Negative) 05/23/22 Unknown Influenza Type B Ag negative (Negative) 05/23/22 Unknown SARS-CoV-2 Ag (Rapid) negative (Negative) 05/23/22 Unknown Discharge Plan Discharge Patient Disposition: Admitted As Inpatient Admit Provider: Antonio Lacy Clinical Impression: Acute psychosis Condition: Stable Discharge Diet: Usual diet Discharge Activity: Resume usual activity Coding Level of Care Code ED Supervisor Model Making for René Dubose
[2022-05-23 21:41] LABS: Basophils % 0.4 %; Eosinophils # 0.1 10^3/uL (0.0-0.8); Eosinophils % 1.6 %; Hematocrit 44.1 % (37.0-47.0); Hemoglobin 14.2 g/dL (11.5-15.3); Lymphocytes # 1.8 10^3/uL (0.8-4.8); Lymphocytes % 23.5 %; Mean Corpuscular HGB Conc 32.2 g/dL (30.0-36.0); Mean Corpuscular Volume 90.2 fl (81-99); Mean Platelet Volume 9.5 fL (7.4-10.4); Monocytes # 0.5 10^3/uL (0.2-0.9); Monocytes % 6.7 %; Neutrophils # 5.17 10^3/uL (1.8-7.7); Neutrophils % 67.7 %; Nucleated Red Blood Cells % 0 %; Platelet Count 213 10^3/cmm (130-400); Red Blood Count 4.89 10^6/uL (4.1-5.3); Red Cell Distribution Width 12.7 % (12.1-15.1); White Blood Count 7.6 10^3/uL (4.0-10.0)
[2022-05-23 22:08] LABS: Alanine Aminotransferase 12 U/L (0-33); Albumin Level 4.6 g/dL (3.5-5.2); Alkaline Phosphatase 63 U/L (35-105); Anion Gap 14.8 (5-19); Aspartate Amino Transferase 19 U/L (0-32); Blood Urea Nitrogen 11 mg/dL (6-20); Calcium 9.4 mg/dL (8.5-10.5); Carbon Dioxide 24 mmol/L (22-29); Chloride 104 mmol/L (98-107); Globulin 1.9 g/dL (1.3-4.6); Glomerular Filtration Rate 87.2 mL/min (90-130); Glucose 120 mg/dL (65-115); Osmolality Calculated 289 mOsm/kg (285-295); Potassium 3.8 mmol/L (3.5-5.1); Sodium 139 mmol/L (136-145); Thyroid Stimulating Hormone 0.54 uIU/mL (0.27-4.20); Total Bilirubin 0.5 mg/dL (0.15-1.2); Total Protein 6.5 g/dL (6.6-8.7)
[2022-05-23] MEDS: LORazepam 1 mg Tablet PO (22:09)
--- NOTE | 2022-05-23 22:12 | PC.NURSE ---
Copy of 96 Hour Rights served to pt by this RN and security. Pt changed to appropriate scrubs, belongings placed in file cabinet, sitter assigned to pt for direct observation.
[2022-05-23 22:13] LABS: Acetaminophen < 5.0 ug/mL (10-30); Alcohol Level < 10 mg/dL (0-10); Salicylate < 0.3 mg/dL (3-10)
--- NOTE | 2022-05-23 22:15 | ECG_ITS ---
[facility] Test Date: 2022-05-23 Pat Name: Brooklyn Gutierrez Department: Room: ED Gender: Female Handkerchief Presser: : 1965 Requested By: Joseph Sanders Order Number: [id number] Philip MD: Lindsay Hernandez M.D. Measurements Intervals [place] Rate: 93 P: 69 AL: 155 QRS: 85 QRSD: 84 T: 69 QT: 361 QTc: 451 Interpretive Statements SINUS RHYTHM POSSIBLE LEFT ATRIAL ENLARGEMENT [-0.1mV P-WAVE IN V1/V2] POSSIBLE ANTERIOR MYOCARDIAL INFARCTION , OF INDETERMINATE AGE [30 ms Q WAVE IN V3/V4, OR R < 0.2 mV IN V4] No previous ECG available for comparison Electronically Signed On 05-25-2022 0:14:20 OPTOMETRY ASSISTANT by Lindsay Hernandez M.D. [email or web address]
[2022-05-23 22:26] LABS: HCG, Serum Qual Negative (Negative)
[2022-05-23] MEDS: OLANZapine 5 mg ODT PO (22:39)
[2022-05-23 23:55] LABS: Influenza A by IFA negative (Negative); Influenza B by IFA negative (Negative); SARS Covid-2 Antigen negative (Negative)
[2022-05-24 04:44] VITALS: BP 140/76; PULSE 85; RESP 16; O2SAT 93
[2022-05-24 06:43] VITALS: BP 105/75; PULSE 87; RESP 16; O2SAT 93
[2022-05-24 10:00] VITALS: PULSE 92; O2SAT 93
[2022-05-24 10:50] LABS: Amphetamines Screen Urine Positive (Negative); Barbiturates Screen Urine Negative (Negative); Benzodiazepines Screen Urine Positive (Negative); Cocaine Screen Urine Negative (Negative); Opiate Screen Urine Negative (Negative); PCP Screen Urine Negative (Negative); THC Screen Urine Negative (Negative)
[2022-05-24 11:11] LABS: Add Urine Culture? No; Add Urine Microscopic? YES; Bacteria Urine 1+ /hpf; Bilirubin Urine Neg (Negative); Blood Urine Neg (Negative); Glucose Urine UA Norm (Normal); Ketones Urine Negative (Negative); Leukocyte Esterase Urine 2+ (Negative); Mucus Urine 3+ /hpf; Nitrate Urine Negative (Negative); Protein Urine Neg (Negative); RBC Urine 0-4 /hpf (0-2); Urine Appearance Clear (CLEAR); Urine Color Yellow (Yellow); Urobilinogen Urine Neg (Negative); pH Urine 5 (5-7)
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
[2022-05-24 11:27] VITALS: BP 106/73; PULSE 96; RESP 18; TEMP 37.1; O2SAT 95
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
[2022-05-24] MEDS: buPROPion XL (24 HR) 150 mg Tablet PO (13:52)
[2022-05-24 14:00] VITALS: RESP 17
[2022-05-24] MEDS: mirtazapine 15 mg Tablet PO (21:06)
[2022-05-24 21:26] VITALS: BP 118/82; PULSE 116; RESP 18; TEMP 37; O2SAT 96
[2022-05-25] MEDS: acetaminophen 325 mg Tablet 650 MG PO ×2 (04:07→21:16)
[2022-05-25] MEDS: hyDROXYzine 25 mg Capsule 50 MG PO ×2 (04:08→21:22)
[2022-05-25 06:00] VITALS: BP 113/78; PULSE 82; RESP 17; TEMP 36.6; O2SAT 95
[2022-05-25] MEDS: buPROPion XL (24 HR) 150 mg Tablet PO (09:49)
[2022-05-25 14:00] VITALS: BP 133/81; PULSE 91; RESP 18; TEMP 36.6; O2SAT 96
--- NOTE | 2022-05-25 16:20 | W.PM.NPUPNS ---
Subjective NPU Subjective: Patient presents today reporting that things are going a little better than yesterday. She does not seem to have a hold on why her recovery has proven so difficult. She is able to identify some issues related to persons and places. But does not seem to have an answer for how she can get her recovery back on track. We once again reviewed the possibility of adding Abilify to her current regimen every morning and she understood and agreed to proceed as is documented in this note. Mental Status Exam MSE Comments: This is a well-nourished well-developed white female with hospital scrubs on with limited grooming and eye contact.? No abnormal movements except for psychomotor agitation.??Cooperative with exam in no acute distress. Speech was normal rate and volume. Mood described as okay, affect is congruent. Thought process, organized. Thought content: patient denies suicidal or homicidal ideation, reports some paranoia but no delusions noted and denies any auditory or visual hallucinations. Attention and concentration are intact and memory appeared reliable but none were formally tested. She is alert and oriented times three. Insight and judgment are and. Impulse control is impaired. Vitals/I&O/Wt Last Vital Signs Temp 98 F 05/25/22 14:00 Pulse 91 05/25/22 14:00 Resp 18 05/25/22 14:00 BP 133/81 05/25/22 14:00 Pulse Ox 96 05/25/22 14:00 O2 Del Method 05/25/22 14:00 Weight last 48 hrs Weight 64.949 kg Weight 64.949 kg Data NPU 05/23/22 21:17 05/23/22 21:17 A&P Assessment and plan (1) Suicidal ideation: (2) Methamphetamine dependence: (3) Substance abuse: (4) Acute anxiety: (5) Psychosis: Plan This is a 55-year-old white female with a long history of mental health and addiction issues with active methamphetamine dependence and psychosis either created or exacerbated by her methamphetamine use who presents off of her medication and open to restarting it. 1.? Continue current medication.? Except restart Abilify 10 mg p.o. every morning. 2.? Continue every 15 minute checks for safety. 3.? Encourage individual, group and milieu therapies. 4.? Encourage sober living treatment after discharge at the highest level of care to which he is willing to commit. Involuntary Hold Information 96 Hour Hold: 96 Hour Involuntary Admission: Yes Attestations NPU Medical Necessity Statement*: Inpatient hospitalization is medically necessary and the clinically appropriate intervention at this time. We will monitor medication to make changes as indicated. Likely length of stay 3-5 days. Coding Level of Care Code Acute Code for [facility] Fwd Diagnoses Suicidal ideation R45.851 Methamphetamine dependence F15.20 Substance abuse F19.10 Acute anxiety F41.9 Psychosis F29
[2022-05-25] MEDS: mirtazapine 15 mg Tablet PO (21:17)
[2022-05-26] MEDS: buPROPion XL (24 HR) 150 mg Tablet PO (09:22)
[2022-05-26] MEDS: acetaminophen 325 mg Tablet 650 MG PO (09:22)
[2022-05-26] MEDS: ARIPiprazole 10 mg Tablet PO (09:22)
[2022-05-26] MEDS: magnesium hydroxide 30 mL UDC PO (13:20)
[2022-05-26 14:00] VITALS: BP 142/87; PULSE 94; RESP 16; TEMP 36.6; O2SAT 96
--- NOTE | 2022-05-26 15:44 | P.NPUPN_ITS ---
Subjective NPU Subjective: Patient presented today reporting that she is quite tired. We discussed significance of her lethargy against the backdrop of her addiction. She accepts and identifies there is a need to address that and is working with the treatment team having identified possible sober living facility for d ischarge. UDS was positive for amphetamines and we discussed this part of a predictable crash. Mental Status Exam MSE Comments: This is a well-nourished well-developed white female with hospital scrubs on with limited grooming and eye contact.? No abnormal movements except for psychomotor retardation.??Cooperative with exam in no acute distress. Speech was decreased rate and volume. Mood described as okay, affect is subdued. Thought process, organized. Thought content: patient denies suicidal or armin icidal ideation, reports some paranoia but no delusions noted and denies any auditory or visual hallucinations. Attention and concentration are intact and memory appeared reliable but none were formally tested. She is alert and oriented times three. Insight and judgment are limited and impulse control is impaired. Vitals/I&O/Wt Last Vital Signs Temp 98 F 05/26/22 14:00 Pulse 94 05/26/22 14:00 Resp 16 05/26/22 14:00 BP 142/87 05/26/22 14:00 Pulse Ox 96 05/26/22 14:00 O2 Del Method 05/26/22 14:00 Data NPU 05/23/22 21:17 05/23/22 21:17 A&P Assessment and plan (1) Suicidal ideation: (2) Methamphetamine dependence: (3) Substance abuse: (4) Acute anxiety: (5) Psychosis: Plan This is a 55-year-old white female with a long history of mental health and addiction issues with active methamphetamine dependence and psychosis either created or exacerbated by her methamphetamine use who presents off of her medication and open to restarting it. 1.? Continue current medication.? Except restarted Abilify 10 mg p.o. every morning. 2.? Continue every 15 minute checks for safety. 3.? Encourage individual, group and milieu therapies. 4.? Encourage sober living treatment after discharge at the highest level of care to which he is willing to commit. Involuntary Hold Information 96 Hour Hold: 96 Hour Involuntary Admission: Yes Attestations NPU Medical Necessity Statement*: Inpatient hospitalization is medically necessary and the clinically appropriate intervention at this time. We will monitor medication to make changes as indicated. Likely length of stay 3-5 days. Coding Level of Care Code Acute Code for Chg Fwd Diagnoses Suicidal ideation R45.851 Methamphetamine dependence F15.20 Substance abuse F19.10 Acute anxiety F41.9 Psychosis F29
[2022-05-26] MEDS: mirtazapine 15 mg Tablet PO (20:43)
[2022-05-27 06:00] VITALS: RESP 16
[2022-05-27] MEDS: buPROPion XL (24 HR) 150 mg Tablet PO (08:39)
[2022-05-27] MEDS: ARIPiprazole 10 mg Tablet PO (08:39)
[2022-05-27] MEDS: nicotine 21 mg Patch 1 PATCH TRANSDERMA (08:39)
[2022-05-27 14:00] VITALS: BP 128/84; PULSE 89; RESP 18; TEMP 36.9; O2SAT 96
--- NOTE | 2022-05-27 17:30 | W.PM.NPUPNS ---
Subjective NPU Subjective: Patient presented today reporting that she is feeling better than the past few days. We discussed the fact that Dr. Kenney will be here tomorrow that he will make sure that she is ready to move on to the rehab from a mental health standpoint. She reports he is doing okay with the resumption of the Abilify. Mental Status Exam MSE Comments: This is a well-nourished well-developed white female with hospital scrubs on with limited grooming and eye contact.? No abnormal movements except for psychomotor retardation continues to be isolative and staying in bed a lot.??Cooperative with exam in no acute distress. Speech was decreased rate and volume. Mood described as okay, affect is subdued. Thought process, organized. Thought content: patient denies suicidal or homicidal ideation, reports some paranoia but no delusions noted and denies any auditory or visual hallucinations. Attention and concentration are intact and memory appeared reliable but none were formally tested. She is alert and oriented times three. Insight and judgment are limited and impulse control is impaired. Vitals/I&O/Wt Last Vital Signs Temp 98.0 F 05/27/22 20:58 Pulse 98 05/27/22 20:58 Resp 17 05/27/22 20:58 BP 134/91 05/27/22 20:58 Pulse Ox 97 05/27/22 20:58 O2 Del Method 05/27/22 20:58 Weight last 48 hrs Weight 67.812 kg Weight 67.812 kg Data NPU 05/23/22 21:17 05/23/22 21:17 A&P Assessment and plan (1) Suicidal ideation: (2) Methamphetamine dependence: (3) Substance abuse: (4) Acute anxiety: (5) Psychosis: Plan This is a 55-year-old white female with a long history of mental health and addiction issues with active methamphetamine dependence and psychosis either created or exacerbated by her methamphetamine use who presents off of her medication and open to restarting it. 1.? Continue current medication.? Except restarted Abilify 10 mg p.o. every morning. 2.? Continue every 15 minute checks for safety. 3.? Encourage individual, group and milieu therapies. 4.? Encourage sober living treatment after discharge at the highest level of care to which he is willing to commit. Involuntary Hold Information 96 Hour Hold: 96 Hour Involuntary Admission: Yes Attestations NPU Medical Necessity Statement*: Inpatient hospitalization is medically necessary and the clinically appropriate intervention at this time. We will monitor medication to make changes as indicated. Likely length of stay 2 to 4 days. Coding Level of Care Code Acute Code for Chg Fwd Diagnoses Suicidal ideation R45.851 Methamphetamine dependence F15.20 Substance abuse F19.10 Acute anxiety F41.9 Psychosis F29
[2022-05-27] MEDS: ibuprofen 600 mg Tablet PO (17:52)
[2022-05-27] MEDS: gabapentin 300 mg Capsule PO (19:57)
[2022-05-27] MEDS: trazodone 50 mg Tablet PO (19:57)
[2022-05-27] MEDS: hyDROXYzine 25 mg Capsule 50 MG PO (19:57)
[2022-05-27] MEDS: mirtazapine 15 mg Tablet PO (19:57)
[2022-05-27] MEDS: magnesium hydroxide 30 mL UDC PO (20:11)
--- NOTE | 2022-05-27 20:57 | PC.NURSE ---
PT REQUESTED MEDICATION FOR INSOMNIA, ANXIETY AND CONSTIPATION. PT WAS GIVEN TRAZADONE AND VISTARIL ORDERED. PT REPORTS NO BM FOR 2 DAYS AND REQUESTED SOMETHING FOR CONSTIPATION. MOM 30 MLS WAS GIVEN ORDERED. SEE MAR FOR DETAILS AND ADMIN TIMES.
[2022-05-27 20:58] VITALS: BP 134/91; PULSE 98; RESP 17; TEMP 36.7; O2SAT 97
[2022-05-28 04:49] VITALS: BMI 23.4
[2022-05-28] MEDS: buPROPion XL (24 HR) 150 mg Tablet PO (11:35)
[2022-05-28] MEDS: gabapentin 300 mg Capsule PO ×3 (11:35→21:14)
[2022-05-28] MEDS: ARIPiprazole 10 mg Tablet PO (11:35)
[2022-05-28 13:58] VITALS: BP 104/73; PULSE 95; RESP 18; TEMP 36.9; O2SAT 94
[2022-05-28] MEDS: nicotine 21 mg Patch 1 PATCH TRANSDERMA (15:11)
--- NOTE | 2022-05-28 15:50 | P.NPUPN_ITS ---
Subjective NPU Subjective: Patient is a 56-year-old white female admitted with a history of methamphetamine dependence and acute psychosis along with a history of depressed mood who reports that her mood has been better over the past few days. She reported no side effects from her Abilify,bupropion, Neurontin, or Remeron at this time. She had reported struggles with maintaining sobriety before in the past but stated that she was feeling less paranoid with the Abilify having been really started. She denied any suicidal thoughts. She denied any feelings of hopelessness. She had expressed desire to continue with outpatient services after discharge. Patient had been compliant on the milieu and redirectable. Mental Status Exam MSE Comments: This is a well-nourished well-developed white female with hospital scrubs on with limited grooming and eye contact.? No abnormal movements except fo mild psychomotor retardation. She was?cooperative with exam in no acute distress. Speech was normal in rate and normal in volume. Mood described as better. Affect appeared somewhat flat and mood incongruent. Thought pro cess: linear and organized. Thought content: patient denies suicidal or homicidal ideation, reports some paranoia but no delusions noted and denies any auditory or visual hallucinations. Attention and concentration are intact and memory appeared reliable but none were formally tested. She is alert and oriented times three. Insight and judgment are limited and impulse control is impaired. Vitals/I&O/Wt Last Vital Signs Temp 98.5 F 05/28/22 13:58 Pulse 95 05/28/22 13:58 Resp 18 05/28/22 13:58 BP 104/73 05/28/22 13:58 Pulse Ox 94 05/28/22 13:58 O2 Del Method 05/28/22 13:58 Weight last 48 hrs Weight 67.812 kg Weight 67.812 kg Data NPU 05/23/22 21:17 05/23/22 21:17 A&P Assessment and plan (1) Suicidal ideation: (2) Methamphetamine dependence: (3) Substance abuse: (4) Acute anxiety: (5) Psychosis: Plan This is a 55-year-old white female with a long history of mental health and addiction issues with active methamphetamine dependence and psychosis either created or exacerbated by her methamphetamine use who presents off of her medication and open to restarting it. 1.? Continue Abilify, Remeron, Wellbutrin XL, and Neurontin as prescribed. 2.? Continue every 15 minute checks for safety. 3.? Encourage individual, group and milieu therapies. 4.? Encourage sober living treatment after discharge at the highest level of care to which he is willing to commit. Involuntary Hold Information 96 Hour Hold: 96 Hour Involuntary Admission: Yes Attestations NPU Medical Necessity Statement*: Inpatient hospitalization is medically necessary and the clinically appropriate intervention at this time. We will monitor medication to make changes as indicated. Likely length of stay 2 to 4 days. Coding Level of Care Code Acute Code for Chg Fwd Diagnoses Suicidal ideation R45.851 Methamphetamine dependence F15.20 Substance abuse F19.10 Acute anxiety F41.9 Psychosis F29
[2022-05-28] MEDS: mirtazapine 15 mg Tablet PO (21:14)
[2022-05-28] MEDS: trazodone 50 mg Tablet PO (21:17)
[2022-05-28 22:00] VITALS: BP 116/66; PULSE 99; RESP 18; TEMP 37.1; O2SAT 95
--- NOTE | 2022-05-28 23:21 | PC.NURSE ---
PRN tizanidine given for muscle spasms per pt request.
--- NOTE | 2022-05-28 23:22 | PC.NURSE ---
PRN medications given vistaril for anxiety and robitussin for cough per pt request.
[2022-05-29 06:00] VITALS: BP 125/73; PULSE 86; RESP 18; TEMP 37.1; O2SAT 94
[2022-05-29] MEDS: ARIPiprazole 10 mg Tablet PO (08:45)
[2022-05-29] MEDS: gabapentin 300 mg Capsule PO ×2 (08:45→14:23)
[2022-05-29] MEDS: buPROPion XL (24 HR) 150 mg Tablet PO (08:45)
[2022-05-29 13:28] VITALS: BP 111/71; PULSE 102; RESP 17; TEMP 36.9; O2SAT 96
--- NOTE | 2022-05-29 14:48 | P.NPUPN_ITS ---
Subjective NPU Subjective: Patient is a 56-year-old white female admitted with a history of methamphetamine dependence and acute psychosis along with a history of depressed mood. Patient had denied any suicidal thoughts at this time. She had reported interest in inpatient treatment. She reports that she was motivated to stop using methamphetamines and she had reported no paranoia or hallucinations currently. She reported no feelings of hopelessness. Patient reported frequent problems with managing her mood and reported that she needed to have more help with managing her addictions in order to stabilize her mood. Mental Status Exam MSE Comments: This is a well-nourished well-developed white female with hospital scrubs on with limited grooming and eye contact.? No abnormal movements except fo mild psychomotor retardation. She was?cooperative with exam in no acute distress. Speech was normal in rate and normal in volume. Mood described as better. Affect appeared somewhat flat and mood incongruent. Thought process: linear and organized. Thought content: patient denies suicidal or homicidal ideation, reports no paranoia and no overt delusions noted and denies any auditory or visual hallucinations. Attention and concentration are intact and memory appeared reliable but none were formally tested. She is alert and oriented times three. Insight and judgment are limited and impulse control is impaired. Vitals/I&O/Wt Last Vital Signs Temp 98.4 F 05/29/22 13:28 Pulse 102 H 05/29/22 13:28 Resp 17 05/29/22 13:28 BP 111/71 05/29/22 13:28 Pulse Ox 96 05/29/22 13:28 O2 Del Method 05/29/22 06:00 Weight last 48 hrs Weight 67.812 kg Weight 67.812 kg Data NPU 05/23/22 21:17 05/23/22 21:17 A&P Assessment and plan (1) Suicidal ideation: (2) Methamphetamine dependence: (3) Substance abuse: (4) Acute anxiety: (5) Psychosis: Plan This is a 55-year-old white female with a long history of mental health and addiction issues with active methamphetamine dependence and psychosis either created or exacerbated by her methamphetamine use who presents off of her medication and open to restarting it. 1.? Continue Abilify, Remeron, Wellbutrin XL, and Neurontin as prescribed. 2.? Continue every 15 minute checks for safety. 3.? Encourage individual, group and milieu therapies. 4.? Encourage sober living treatment after discharge at the highest level of care to which he is willing to commit. 5. Likely discharge tommorow. Involuntary Hold Information 96 Hour Hold: 96 Hour Involuntary Admission: Yes Attestations NPU Medical Necessity Statement*: Inpatient hospitalization is medically necessary and the clinically appropriate intervention at this time. We will monitor medication to make changes as indicated. Likely length of stay 1-2 days. Coding Level of Care Code Acute Code for [facility] Fwd Diagnoses Suicidal ideation R45.851 Methamphetamine dependence F15.20 Substance abuse F19.10 Acute anxiety F41.9 Psychosis F29
[2022-05-29 15:35] VITALS: BP 111/71; PULSE 102; RESP 17; TEMP 36.9; O2SAT 96
--- NOTE | 2022-05-29 15:35 | P.NPUDS_ITS ---
Diagnoses at Discharge Discharge Diagnosis (1) Suicidal ideation: Status: Resolved (2) Methamphetamine dependence: Status: Acute (3) Substance abuse: Status: Acute (4) Acute anxiety: Status: Acute (5) Psychosis: Status: Resolved Reason for Visit Reason for Visit: Sent by crisis center Brief History: History of Present Illness Brooklyn Gutierrez is a 56 year old female who presented to the emergency department with the following report: Chief Complaint: Psychiatric Symptoms Stated Complaint: Sent by crisis center Time Seen by Provider: 05/23/22 21:08 History of Present Illness:?? Ms. Gutierrez is a 56-year-old lady with history of substance abuse and anxiety presenting to the emergency department for mental health exam.? She reports anxiety earlier today that has largely resolved upon my evaluation however in talking with the patient she makes many statements which are concerning for psychosis.? She reports substance abuse yesterday and has had increased paranoia.? She alludes to a male multiple times who she is afraid of and is scared that she will be hurt if she leaves.? She also reports that he has the capability to reach her here in the hospital.? Though she denies suicidal thoughts she reports fearing for her life from this individual and believes that she may be killed due to failure to quit using drugs.? She cannot further articulate specifics, she does not seem to have a safe plan for discharge and offers very limited insight. Onset (ago): hour(s) Context: recent drug abuse Associated psychiatric symptoms: delusions and other. The patient was admitted to the neuropsychiatric unit for definitive treatment of those issues. She denied any current psychiatric medications. She presents to the psychiatric hospital due to drug induced psychosis and having a mental breakdown. She has been psychiatrically hospitalized 3 to 5 times, has received outpatient services and has been on other psychiatric medications in the past. She reports she went to [facility] and then a [facility] for a couple of months for rehab after which she was in a prison for a month. When she left the prison she went to another recovery center and even started working. She endorses doing well on Abilify and Trazodone at night. She has been on Gabapentin for the pain in her fingers due to blood circulation problems. She reports a pack of cigarettes a day, denies alcohol, marijuana, reports methamphetamine and denies any other illicit drug use. She has been to a couple of rehabs, had a DUI once in the 90s and had a possession charge in 2018. She reports relapsing as she hadn?t seen her children in 6 years and thought something might happened to them as she has not been able to get ahold of them after they were adopted by her sister in 2018. She got in touch with her younger sister though who reported that everyone was okay. She reports relapsing again in January but decided to leave her boyfriend if she was not able to stay clean and endorses wanting to go back to [facility] to work the program sooner rather than later. She denies many changes in her history since she was last seen.? Excerpt of her last hospitalization with this poem writer is included below for context and history. Psychiatric History: As above. Substance Abuse History: As above.? UDS is positive for benzodiazepines and amphetamines. Hospital Course Hospital Course Discharge Summary: During the hospitalization, patient had routine laboratory studies which were within normal limits except for few outliers. Additionally there was a general medical evaluation which was also within normal limits and revealed no new acute processes. At the time of discharge, lethality was denied and psychosis was resolving. Mood and anxiety were well managed. Patient endorsed a plan to avoid all drugs of abuse and follow-up with the aftercare recommendations of the treatment team. Patient was evaluated and deemed to be absent credible lethality, and had achieved the maximum benefit from an inpatient hospitalization, so was discharged. Involuntary Hold Information 96 Hour Hold: 96 Hour Involuntary Admission: Yes Mental Status Exam MSE Comments: This is a well-nourished well-developed white female with hospital scrubs on with limited grooming and eye contact.? No abnormal movements except fo mild psychomotor retardation. She was?cooperative with exam in no acute distress. Speech was normal in rate and normal in volume. Mood described as better. Affect appeared brighter on discharge. Thought process: linear and organized. Thought content: patient denies suicidal or homicidal ideation, reports no paranoia and no overt delusions noted and denies any auditory or visual hallucinations. Attention and concentration are intact and memory appeared reliable but none were formally tested. She is alert and oriented times three. Insight and judgment are fair and impulse control is improved though remains poor by history. Discharge Data Studies Completed and Pending: Laboratory Results WBC 7.6 10^3/uL (4.0- 10.0) 05/23/22 21:17 RBC 4.89 10^6/uL (4.1 -5.3) 05/23/22 21:17 Hgb 14.2 g/dL (11.5-1 5.3) 05/23/22 21:17 Hct 44.1 % (37.0-47.0 ) 05/23/22 21:17 MCV 90.2 fl (81-99) 05/23/22 21:17 MCH 29.0 pg (28.0-34. 0) 05/23/22 21:17 MCHC 32.2 g/dL (30.0-3 6.0) 05/23/22 21:17 RDW 12.7 % (12.1-15.1 ) 05/23/22 21:17 Plt Count 213 10^3/cmm (130 -400) 05/23/22 21:17 MPV 9.5 fL (7.4-10.4) 05/23/22 21:17 Neut % (Auto) 67.7 % 05/23/22 21:17 Lymph % (Auto) 23.5 % 05/23/22 21:17 [place] % (Auto) 6.7 % 05/23/22 21:17 Eos % (Auto) 1.6 % 05/23/22 21:17 Baso % (Auto) 0.4 % 05/23/22 21:17 Neut # (Auto) 5.17 10^3/uL (1.8 -7.7) 05/23/22 21:17 Lymph # (Auto) 1.8 10^3/uL (0.8- 4.8) 05/23/22 21:17 [place] # (Auto) 0.5 10^3/uL (0.2- 0.9) 05/23/22 21:17 Eos # (Auto) 0.1 10^3/uL (0.0- 0.8) 05/23/22 21:17 Baso # (Auto) 0.0 10^3/uL (0.0- 0.1) 05/23/22 21:17 Nucleated RBC % (a uto) 0 % 05/23/22 21:17 Nucleated RBCs # 0.0 /100WBC 05/23/22 21:17 Sodium 139 mmol/L (136-1 45) 05/23/22 21:17 Potassium 3.8 mmol/L (3.5-5 .1) 05/23/22 21:17 Chloride 104 mmol/L (98-10 7) 05/23/22 21:17 Carbon Dioxide 24 mmol/L (22-29) 05/23/22 21:17 Anion Gap 14.8 (5-19) 05/23/22 21:17 BUN 11 mg/dL (6-20) 05/23/22 21:17 Creatinine 0.7 mg/dL (0.5-0. 9) 05/23/22 21:17 GFR Calculation 87.2 mL/min (90-1 30) L 05/23/22 21:17 Glucose 120 mg/dL (65-115 ) H 05/23/22 21:17 Calculated Osmolal ity 289 mOsm/kg (285- 295) 05/23/22 21:17 Calcium 9.4 mg/dL (8.5-10 .5) 05/23/22 21:17 Total Bilirubin 0.5 mg/dL (0.15-1 .2) 05/23/22 21:17 AST 19 U/L (0-32) 05/23/22 21:17 ALT 12 U/L (0-33) 05/23/22 21:17 Alkaline Phosphata se 63 U/L (35-105) 05/23/22 21:17 Total Protein 6.5 g/dL (6.6-8.7 ) L 05/23/22 21:17 Albumin 4.6 g/dL (3.5-5.2 ) 05/23/22 21:17 Globulin 1.9 g/dL (1.3-4.6 ) 05/23/22 21:17 TSH 0.54 uIU/mL (0.27 -4.20) 05/23/22 21:17 HCG, Qual Cancelled 05/23/22 21:17 HCG, Qual Negative (Negati ve) 05/23/22 21:17 Urine Color Yellow (Yellow) 05/23/22 10:00 Urine Appearance Clear (CLEAR) 05/23/22 10:00 Urine pH 5 (5-7) 05/23/22 10:00 Ur Specific Gravit y 1.020 (1.005-1.0 30) 05/23/22 10:00 Urine Protein Neg (Negative) 05/23/22 10:00 Urine Glucose (UA) Norm (Normal) 05/23/22 10:00 Urine Ketones Negative (Negati ve) 05/23/22 10:00 Urine Blood Neg (Negative) 05/23/22 10:00 Urine Nitrate Negative (Negati ve) 05/23/22 10:00 Urine Bilirubin Neg (Negative) 05/23/22 10:00 Urine Urobilinogen Neg mg/dL (Negati ve) 05/23/22 10:00 Ur Leukocyte Lizeth ase 2+ (Negative) H 05/23/22 10:00 Urine RBC 0-4 /hpf (0-2) H 05/23/22 10:00 Urine WBC 5-10 /hpf (0-5) H 05/23/22 10:00 Ur Squamous Epith Cells 10-15 /hpf (0-5) H 05/23/22 10:00 Amorphous Sediment Not Reportable 05/23/22 10:00 Urine Bacteria 1+ /hpf (NONE) H 05/23/22 10:00 Urine Mucus 3+ /hpf 05/23/22 10:00 Salicylates < 0.3 mg/dL (3-10 ) L 05/23/22 21:17 Urine Opiates Scre en Negative ng/mL (N egative) 05/23/22 10:00 Acetaminophen < 5.0 ug/mL (10-3 0) L 05/23/22 21:17 Ur Barbiturates Sc reen Negative ng/mL (N egative) 05/23/22 10:00 Ur Phencyclidine S crn Negative ng/mL (N egative) 05/23/22 10:00 Ur Amphetamines Sc reen Positive ng/mL (N egative) H 05/23/22 10:00 U Benzodiazepines Scrn Positive ng/mL (N egative) H 05/23/22 10:00 Urine Cocaine Scre en Negative ng/mL (N egative) 05/23/22 10:00 U Marijuana (THC) Screen Negative ng/mL (N egative) 05/23/22 10:00 Ethyl Alcohol < 10 mg/dL (0-10) 05/23/22 21:17 Influenza Type A A g negative (Negati ve) 05/23/22 Unknown Influenza Type B A g negative (Negati ve) 05/23/22 Unknown SARS-CoV-2 Ag (Rap id) negative (Negati ve) 05/23/22 Unknown Vitals: Last Vital Signs Temp 98.4 F 05/29/22 15:35 Pulse 102 H 05/29/22 15:35 Resp 17 05/29/22 15:35 BP 111/71 05/29/22 15:35 Pulse Ox 96 05/29/22 15:35 O2 Del Method 05/29/22 06:00 Discharge Plan Discharge Patient Disposition: Home Condition: Stable Prescriptions: New aripiprazole 10 mg Tablet 10 mg PO DAILY 30 Days Qty: 30 1RF Continued gabapentin 300 mg capsule 300 mg PO TID MDD 900mg 30 Days Qty: 90 1RF mirtazapine 15 mg tablet 15 mg PO BEDTIME 30 Days Qty: 30 1RF Wellbutrin XL 150 mg Tablet Extended Release 24 Hr 150 mg PO 1XD 30 Days Qty: 30 1RF Rx Instructions: TAKE 2 TABS IN THE MORNING Discharge Orders: Discharge Order (Routine); Ordered 05/29/22 Ordered By: Georgi Kenney Discharge Diet: Usual diet Discharge Activity: Resume usual activity Patient Instructions: Aripiprazole (By mouth), Psychotic Disorder (GEN), Opioid Safety Discharge Attestations NPU Time Spent in Discharge Care*: less than 30 min Specific Discharge Activities: Specific discharge activities: educating patient, discussing with piano case and bench assembler/social workers/dc planners, documenting/other paperwork and evaluating patient/reviewing data Coding Level of Care Code Acute Chg FW DC note Diagnoses Suicidal ideation R45.851 Methamphetamine dependence F15.20 Substance abuse F19.10 Acute anxiety F41.9 Psychosis F29
== END 2022-05-29 16:24 | disposition home or self-care (01) | DRG 897 ==
LOC: ER 22:12 → ER IP 23:58 → NP 05-24 13:22
PROVIDERS: Admitting Provider Psychiatry & Neurology Psychiatry; Emergency Provider Emergency Medicine; Visit Provider Psychiatry & Neurology Psychiatry
DX: F15.259 Other stimulant dependence with stimulant-induced psychotic disorder, unspecified (principal); R45.851 Suicidal ideations; F17.210 Nicotine dependence, cigarettes, uncomplicated
CPT/HCPCS: 80053; 80306; 80307; 81001; 84443; 84703; 85025; 87426; 87804; 93005; 97165; 99238; 99285

== ENCOUNTER 2022-08-04 22:00 | Inpatient (IN) | payer MEDICAID, SELFPAY ==
[2022-08-04 22:15] VITALS: BP 104/68; PULSE 85; RESP 16; TEMP 36.6; O2SAT 96
[2022-08-04 22:17] VITALS: BMI 25.0
[2022-08-05 06:00] VITALS: RESP 17
--- NOTE | 2022-08-05 06:17 | PC.NURSE ---
08/04/22 at 2258 96 Hour Hold Patient Rights were read to patient & a copy of the same given to the patient for reference. An Lacy, Security, was at bedside.
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
[2022-08-05 14:00] VITALS: BP 107/66; PULSE 94; RESP 16; TEMP 37; O2SAT 97
[2022-08-05 22:00] VITALS: RESP 17
[2022-08-06] MEDS: ibuprofen 600 mg Tablet PO (03:37)
[2022-08-06 06:00] VITALS: RESP 17
--- NOTE | 2022-08-06 11:04 | W.PM.NPUPNS ---
Subjective NPU Subjective: Patient presented today continuing to be lying in bed likely recovering from a significant methamphetamine use binge. She discussed the possibility of restarting her home medications now as he was more coherent. We also continued to discuss what would it take for her to the avoid this pattern with her addiction and if she could possibly commit to sober living treatment in an intensive setting which she reported that was her goal. We discussed the treatment team returning tomorrow and I started to look at what options exist for active dual diagnosis treatment. Mental Status Exam MSE Comments: This is a well-nourished well-developed white female in hospital scrubs with limited grooming and eye contact.? No abnormal movements except for psychomotor retardation.??Mostly cooperative with exam in mild distress. Speech was increased rate and decreased volume with less stuttering and stammering when answering questions. Mood described as okay, affect is less irritable. Thought process, linear and more organized. Thought content: patient denies suicidal or homicidal ideation, reports some paranoia and paranoid, persecutory and odd delusions noted, she denies any auditory or visual hallucinations. Attention and concentration are limited and memory appeared unreliable but none were formally tested. She is alert and oriented times person and place. Insight, judgment and impulse control are impaired. Vitals/I&O/Wt Last Vital Signs Temp 98.6 F 08/05/22 14:00 Pulse 94 08/05/22 14:00 Resp 17 08/06/22 06:00 BP 107/66 08/05/22 14:00 Pulse Ox 97 08/05/22 14:00 O2 Del Method Room Air 08/05/22 14:00 Weight last 48 hrs Weight 72.575 kg A&P Assessment and plan (1) Suicidal ideation: (2) Methamphetamine dependence: (3) Substance abuse: (4) Acute anxiety: (5) Psychosis: Plan This is a 56-year-old white female with a long history of mental health and addiction issues with active methamphetamine dependence and psychosis either created or exacerbated by her methamphetamine use who presents on a 96-hour hold. 1.? Continue current medication.? Restart medications with her permission. 2.? Continue every 15 minute checks for safety. 3.? Encourage individual, group and milieu therapies. 4.? Encourage sober living treatment after discharge at the highest level of care to which he is willing to commit. Involuntary Hold Information 96 Hour Hold: 96 Hour Involuntary Admission: Yes 96 Hour Hold Ending Date: 08/10/22 96 Hour Hold Ending Time: 21:24 Attestations NPU Medical Necessity Statement*: Inpatient hospitalization is medically necessary and the clinically appropriate intervention at this time. We will monitor medication to make changes as indicated. Likely length of stay 3-5 days. Coding Level of Care Code Acute Code for Chg Fwd Diagnoses Suicidal ideation R45.851 Methamphetamine dependence F15.20 Substance abuse F19.10 Acute anxiety F41.9 Psychosis F29
[2022-08-06 14:00] VITALS: BP 139/78; PULSE 95; RESP 17; TEMP 36.7; O2SAT 92
[2022-08-06 19:36] VITALS: BP 128/81; PULSE 90; RESP 16; TEMP 36.8; O2SAT 98
[2022-08-07 06:00] VITALS: BP 152/75; PULSE 78; RESP 16; TEMP 36.8; O2SAT 98
[2022-08-07] MEDS: docusate sodium 100 mg Capsule PO (10:08)
[2022-08-07] MEDS: ARIPiprazole 10 mg Tablet PO (13:21)
[2022-08-07] MEDS: buPROPion XL (24 HR) 150 mg Tablet 300 MG PO (13:21)
[2022-08-07 14:00] VITALS: BP 134/80; PULSE 80; RESP 18; TEMP 36.7; O2SAT 96
--- NOTE | 2022-08-07 14:11 | W.PM.NPUPNS ---
Subjective NPU Subjective: Patient presented today reporting that she is feeling a little better in regards to her functioning. She certainly had more interaction with the milieu and reported that she was tolerating the reinitiation of her medications. She worked with the social work team and identified [facility] as a possible destination for her sober living treatment that she is committing to. We will see how soon the bed date will be. Mental Status Exam MSE Comments: This is a well-nourished well-developed white female in hospital scrubs with limited grooming and eye contact.? No abnormal movements except for lessening psychomotor retardation.??Mostly cooperative with exam in mild distress. Speech was more normal rate and volume. Mood described as a little better, affect is congruent. Thought process, linear and more organized. Thought content: patient denies suicidal or homicidal ideation, reports resolving paranoia and lessening paranoid, persecutory and odd delusions noted, she denies any auditory or visual hallucinations. Attention and concentration are limited and memory appeared a little more reliable but none were formally tested. She is alert and oriented x3. Insight and judgment limited but improving and impulse control is limited. Vitals/I&O/Wt Last Vital Signs Temp 98.1 F 08/07/22 14:00 Pulse 80 08/07/22 14:00 Resp 18 08/07/22 14:00 BP 134/80 08/07/22 14:00 Pulse Ox 96 08/07/22 14:00 O2 Del Method Room Air 08/07/22 06:00 A&P Assessment and plan (1) Suicidal ideation: (2) Methamphetamine dependence: (3) Substance abuse: (4) Acute anxiety: (5) Psychosis: Plan This is a 56-year-old white female with a long history of mental health and addiction issues with active methamphetamine dependence and psychosis either created or exacerbated by her methamphetamine use who presents on a 96-hour hold. 1.? Continue current medication.? Restarted on medications. 2.? Continue every 15 minute checks for safety. 3.? Encourage individual, group and milieu therapies. 4.? Encourage sober living treatment after discharge at the highest level of care to which he is willing to commit. Involuntary Hold Information 96 Hour Hold: 96 Hour Involuntary Admission: Yes 96 Hour Hold Ending Date: 08/10/22 96 Hour Hold Ending Time: 21:24 Attestations NPU Medical Necessity Statement*: Inpatient hospitalization is medically necessary and the clinically appropriate intervention at this time. We will monitor medication to make changes as indicated. Likely length of stay 2-4 days. Coding Level of Care Code Acute Code for Chg Fwd Diagnoses Suicidal ideation R45.851 Methamphetamine dependence F15.20 Substance abuse F19.10 Acute anxiety F41.9 Psychosis F29
[2022-08-07] MEDS: gabapentin 300 mg Capsule PO ×2 (14:29→20:58)
[2022-08-07] MEDS: nicotine 21 mg Patch 1 PATCH TRANSDERMA (14:31)
[2022-08-07 20:46] VITALS: BP 126/84; PULSE 85; RESP 16; TEMP 36.8; O2SAT 97
[2022-08-07] MEDS: mirtazapine 15 mg Tablet PO (20:58)
[2022-08-08 06:00] VITALS: BP 125/85; PULSE 75; RESP 20; TEMP 36.8; O2SAT 96
[2022-08-08] MEDS: buPROPion XL (24 HR) 150 mg Tablet 300 MG PO (08:44)
[2022-08-08] MEDS: ARIPiprazole 10 mg Tablet PO (08:44)
[2022-08-08] MEDS: gabapentin 300 mg Capsule PO ×3 (08:44→21:40)
[2022-08-08 14:00] VITALS: BP 113/68; PULSE 93; RESP 20; TEMP 36.8; O2SAT 95
--- NOTE | 2022-08-08 17:47 | W.PM.NPUPNS ---
Subjective NPU Subjective: Patient presented today reporting that she is feeling a little better. She worked with the treatment team and has put in her application for [facility]. She reported also looking at some other locations that may have had a similar bed date. She reports he is tolerating the resumption of her medications as little tired. Reports eating and sleeping a bit better. Mental Status Exam MSE Comments: This is a well-nourished well-developed white female in hospital scrubs with limited grooming and eye contact.? No abnormal movements except for lessening psychomotor retardation.??Mostly cooperative with exam in mild distress. Speech was more normal rate and volume. Mood described as a little better, affect is congruent. Thought process, linear and more organized. Thought content: patient denies suicidal or homicidal ideation, reports resolving paranoia and lessening paranoid, persecutory and odd delusions noted, she denies any auditory or visual hallucinations. Attention and concentration are limited and memory appeared a little more reliable but none were formally tested. She is alert and oriented x3. Insight and judgment limited but improving and impulse control is limited. Vitals/I&O/Wt Last Vital Signs Temp 99.1 F 08/08/22 22:00 Pulse 96 08/08/22 22:00 Resp 17 08/08/22 22:00 BP 131/80 08/08/22 22:00 Pulse Ox 93 08/08/22 22:00 O2 Del Method Room Air 08/08/22 22:00 A&P Assessment and plan (1) Suicidal ideation: (2) Methamphetamine dependence: (3) Substance abuse: (4) Acute anxiety: (5) Psychosis: Plan This is a 56-year-old white female with a long history of mental health and addiction issues with active methamphetamine dependence and psychosis either created or exacerbated by her methamphetamine use who presents on a 96-hour hold. 1.? Continue current medication.? Restarted on medications. 2.? Continue every 15 minute checks for safety. 3.? Encourage individual, group and milieu therapies. 4.? Encourage sober living treatment after discharge at the highest level of care to which he is willing to commit. Involuntary Hold Information 96 Hour Hold: 96 Hour Involuntary Admission: Yes 96 Hour Hold Ending Date: 08/10/22 96 Hour Hold Ending Time: 21:24 Attestations NPU Medical Necessity Statement*: Inpatient hospitalization is medically necessary and the clinically appropriate intervention at this time. We will monitor medication to make changes as indicated. Likely length of stay 1-3 days. Coding Level of Care Code Acute Code for g Fwd Diagnoses Suicidal ideation R45.851 Methamphetamine dependence F15.20 Substance abuse F19.10 Acute anxiety F41.9 Psychosis F29
[2022-08-08] MEDS: mirtazapine 15 mg Tablet PO (21:40)
[2022-08-08 22:00] VITALS: BP 131/80; PULSE 96; RESP 17; TEMP 37.3; O2SAT 93
[2022-08-09 06:00] VITALS: RESP 18
[2022-08-09] MEDS: gabapentin 300 mg Capsule PO ×3 (10:28→20:41)
[2022-08-09] MEDS: ARIPiprazole 10 mg Tablet PO (10:28)
[2022-08-09] MEDS: buPROPion XL (24 HR) 150 mg Tablet 300 MG PO (10:28)
[2022-08-09] MEDS: nicotine 21 mg Patch 1 PATCH TRANSDERMA (11:34)
[2022-08-09] MEDS: docusate sodium 100 mg Capsule PO (11:38)
[2022-08-09 14:00] VITALS: BP 112/72; PULSE 90; RESP 18; TEMP 37; O2SAT 94
--- NOTE | 2022-08-09 17:21 | P.NPUPN_ITS ---
Subjective NPU Subjective: Patient presented today reporting that she is doing better. She is standing firm that she is going to go to [facility] whether we discharge her prior or not. We agreed we would wait till tomorrow to see what [facility] timeline is to make sure a missed opportunity does not occur that they are ready for her like on Sunday and we create additional risk with the discharge. Otherwise she reports she is adjusting to her medication fine and denied any new or pressing issues. Mental Status Exam MSE Comments: This is a well-nourished well-developed white female in hospital scrubs with mcintosh ited grooming and eye contact.? No abnormal movements except for resolving psychomotor retardation.??Mostly cooperative with exam in mild distress. Speech was more normal rate and volume. Mood described as a little better, affect is congruent. Thought process, linear and more organized. Thought content: patient denies suicidal or homicidal ideation, she denied delusions and none were noted, she denies any auditory or visual hallucinations. Attention and concentration are limited and memory appeared a little more reliable but none were formally tested. She is alert and oriented x3. Insight and judgment limited but improving and impulse control is limited. Vitals/I&O/Wt Last Vital Signs Temp 98.6 F 08/09/22 14:00 Pulse 90 08/09/22 14:00 Resp 18 08/09/22 14:00 BP 112/72 08/09/22 14:00 Pulse Ox 94 08/09/22 14:00 O2 Del Method Room Air 08/08/22 22:00 A&P Assessment and plan (1) Suicidal ideation: (2) Methamphetamine dependence: (3) Substance abuse: (4) Acute anxiety: (5) Psychosis: Plan This is a 56-year-old white female with a long history of mental health and addiction issues with active methamphetamine dependence and psychosis either created or exacerbated by her methamphetamine use who presents on a 96-hour hold. 1.? Continue current medication.? Restarted on medications. 2.? Continue every 15 minute checks for safety. 3.? Encourage individual, group and milieu therapies. 4.? Encourage sober living treatment after discharge at the highest level of care to which he is willing to commit. 5. Will discern whether [facility] as a bed that is imminent otherwise will likely discharge. Involuntary Hold Information 96 Hour Hold: 96 Hour Involuntary Admission: Yes 96 Hour Hold Ending Date: 08/10/22 96 Hour Hold Ending Time: 21:24 Attestations NPU Medical Necessity Statement*: Inpatient hospitalization is medically necessary and the clinically appropriate intervention at this time. We will monitor medication to make changes as indicated. Likely length of stay 1-2 days. Coding Level of Care Code Acute Code for Chg Fwd Diagnoses Suicidal ideation R45.851 Methamphetamine dependence F15.20 Substance abuse F19.10 Acute anxiety F41.9 Psychosis F29
[2022-08-09] MEDS: mirtazapine 15 mg Tablet PO (20:41)
[2022-08-09 22:00] VITALS: BP 114/72; PULSE 99; RESP 15; TEMP 36.6; O2SAT 92
[2022-08-10 06:00] VITALS: RESP 18
[2022-08-10] MEDS: gabapentin 300 mg Capsule PO (08:12)
[2022-08-10] MEDS: buPROPion XL (24 HR) 150 mg Tablet 300 MG PO (08:12)
[2022-08-10] MEDS: ARIPiprazole 10 mg Tablet PO (08:12)
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
[2022-08-10] MEDS: nicotine 2 mg Gum BUCCAL (12:06)
[2022-08-10 12:10] VITALS: BP 114/72; PULSE 99; RESP 18; TEMP 36.6; O2SAT 92
== END 2022-08-10 12:33 | disposition home or self-care (01) | DRG 897 ==
PROVIDERS: Admitting Provider Psychiatry & Neurology Psychiatry; Visit Provider Psychiatry & Neurology Psychiatry
DX: F15.259 Other stimulant dependence with stimulant-induced psychotic disorder, unspecified (principal); R45.851 Suicidal ideations; F41.9 Anxiety disorder, unspecified
CPT/HCPCS: 97150; 97165

== ENCOUNTER 2023-05-08 14:02 | Inpatient (IN) | payer MEDICAID, SELFPAY ==
[2023-05-08 14:07] VITALS: PULSE 80; RESP 18; TEMP 37.1; O2SAT 95; BMI 21.1
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
[2023-05-08 14:13] VITALS: BP 108/66; PULSE 80; RESP 18; O2SAT 95
[2023-05-08 14:45] LABS: Basophils % 0.3 %; Eosinophils # 0.1 10^3/uL (0.0-0.8); Hematocrit 44.1 % (36-47); Lymphocytes # 1.2 10^3/uL (0.8-4.8); Lymphocytes % 20.1 %; Mean Corpuscular HGB Conc 32.4 g/dL (30-55); Mean Corpuscular Hemoglobin 28.8 pg (27-33); Mean Corpuscular Volume 88.7 fl (85-98); Mean Platelet Volume 8.9 fL (7.4-10.4); Monocytes # 0.5 10^3/uL (0.2-0.9); Monocytes % 8.4 %; Neutrophils % 69.9 %; Nucleated Red Blood Cells % 0 %; Platelet Count 236 10^3/cmm (157-399); Red Blood Count 4.97 10^6/uL (3.85-5.65); Red Cell Distribution Width 12.5 % (12.1-15.1); White Blood Count 6.16 10^3/uL (3.29-11.43)
[2023-05-08 15:01] LABS: Alanine Aminotransferase 20 U/L (0-33); Albumin Level 4.1 g/dL (3.5-5.2); Alkaline Phosphatase 69 U/L (35-105); Anion Gap 13.5 (5-19); Aspartate Amino Transferase 25 U/L (0-32); Blood Urea Nitrogen 15 mg/dL (6-20); Calcium 9.8 mg/dL (8.5-10.5); Carbon Dioxide 30 mmol/L (22-29); Chloride 100 mmol/L (98-107); Globulin 2.7 g/dL (1.3-4.6); Glomerular Filtration Rate 74.5 mL/min (90-130); Glucose 72 mg/dL (65-115); Osmolality Calculated 289 mOsm/kg (285-295); Potassium 3.5 mmol/L (3.5-5.1); Sodium 140 mmol/L (136-145); Total Bilirubin 0.4 mg/dL (0.15-1.2); Total Protein 6.8 g/dL (6.6-8.7)
[2023-05-08 15:05] LABS: Acetaminophen < 5.0 ug/mL (10-30); Alcohol Level < 10 mg/dL (0-10); Salicylate < 0.3 mg/dL (3-10)
[2023-05-08 15:40] LABS: Amphetamines Screen Urine Positive (Negative); Barbiturates Screen Urine Negative (Negative); Benzodiazepines Screen Urine Negative (Negative); Cocaine Screen Urine Negative (Negative); Opiate Screen Urine Negative (Negative); PCP Screen Urine Negative (Negative); THC Screen Urine Negative (Negative)
[2023-05-08 17:44] VITALS: BP 116/81; PULSE 81; RESP 16; TEMP 37.3; O2SAT 94
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
[2023-05-08 20:02] VITALS: BP 111/65; PULSE 101; RESP 16; TEMP 37.5; O2SAT 94
[2023-05-09 06:00] VITALS: BP 124/68; PULSE 77; RESP 16; TEMP 37.2; O2SAT 94
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
[2023-05-09 14:00] VITALS: BP 117/73; PULSE 84; RESP 20; TEMP 37.2; O2SAT 97
[2023-05-09] MEDS: ARIPiprazole 10 mg Tablet PO (14:58)
--- NOTE | 2023-05-09 15:05 | PC.OT ---
Pt seen for OT eval and sleeping soundly; will attempt again at a later time.
[2023-05-09 20:20] VITALS: BP 118/78; PULSE 97; RESP 18; TEMP 37.2; O2SAT 94
[2023-05-10 06:00] VITALS: BP 132/82; PULSE 72; RESP 16; TEMP 37.1; O2SAT 96
[2023-05-10] MEDS: ARIPiprazole 10 mg Tablet PO (08:19)
--- NOTE | 2023-05-10 13:42 | P.NPUPN_ITS ---
Subjective NPU 2 Subjective: Patient presented today known to this law writer from previous interactions and appearing as she often has in the beginning. Once again reporting that now that she is on her medication everything will be fine and very much downplaying the impact of her drug use. She reports that she just needs to go get her car from her boyfriend's house and avoid going down there. She reports a plan to move the [place] and get her job back at [employer]. She reports that away from here she does not engage in the behaviors she has that have gotten her in trouble. She denies any side effects to the restarting of her medication. Mental Status Exam 2 MSE Comments: This is a well-nourished well-developed white female in hospital scrubs with limited grooming and eye contact.? No abnormal movements except for psychomotor agitation.??Mostly cooperative with exam in mild distress. Speech was increased in rate and normal in volume with significant with normal prosody. Mood described as allright. Her affect was odd and subdued. Thought process was linear. Thought content: patient denies suicidal or homicidal ideation. There was evidence of bizarre delusions, ideas of reference, contamination. She endorsed auditory hallucinations and did appear to be responding to internal stimuli. Attention and concentration are limited and memory appeared unreliable but none were formally tested. She is alert and oriented to person, place and time. Insight, judgment and impulse control are all impaired. Vitals/I&O/Wt Last Vital Signs Temp 98.8 F 05/10/23 06:00 Pulse 72 05/10/23 06:00 Resp 16 05/10/23 06:00 BP 132/82 05/10/23 06:00 Pulse Ox 96 05/10/23 06:00 O2 Del Method Room Air 05/10/23 06:00 Weight last 48 hrs Weight 61.235 kg Data NPU 05/08/23 14:36 05/08/23 14:36 A&P Assessment and plan (1) Psychosis: (2) Methamphetamine dependence: (3) Methamphetamine use disorder, severe, dependence: (4) Drug-induced psychotic disorder: Qualifiers: Complication of substance-induced condition: with delusions Qualified Code(s): F19.950 - Other psychoactive substance use, unspecified with psychoactive substance-induced psychotic disorder with delusions Plan This is a 57-year-old white female with a long history of mental health and addiction issues with active methamphetamine dependence and psychosis likely associated with methamphetamine use. 1.? Gather collateral information and restarted medications once information ascertained. 2.? Continue every 15 minute checks for safety. 3.? Encourage individual, group and milieu therapies. 4.? Encourage sober living treatment after discharge at the highest level of care to which she is willing to commit. 5. Consider inpatient substance abuse tx once stabilized. Involuntary Hold Information 2 96 Hour Hold: 96 Hour Involuntary Admission: Yes 96 Hour Hold Ending Date: 08/10/22 96 Hour Hold Ending Time: 21:24 Attestations NPU 2 Medical Necessity Statement*: Inpatient hospitalization is medically necessary and the clinically appropriate intervention at this time. We will monitor medication to make changes as indicated. The patient's likely length of stay is 3-5 days. Coding Level of Care Code Acute Code for [facility] Fw Diagnoses Psychosis F29 Methamphetamine dependence F15.20 Methamphetamine use disorder, severe, dependence F15.20 Drug-induced psychotic disorder F19.950 Complication of substance-induced condition: with delusions
[2023-05-10 14:00] VITALS: BP 142/79; PULSE 88; RESP 16; TEMP 36.6; O2SAT 94
[2023-05-10 20:15] VITALS: BP 135/84; PULSE 85; RESP 16; TEMP 36.9; O2SAT 97
[2023-05-11 06:00] VITALS: BP 155/91; PULSE 76; RESP 18; TEMP 37; O2SAT 97
--- NOTE | 2023-05-11 07:47 | P.NPUPN_ITS ---
Subjective NPU 2 Subjective: Patient presented today reporting that she is doing fine. Based on her conversations with the social work team and this science writer she continues to demonstrate ambivalence about what she is doing next. She is now reporting that she is going to have to spend some time back in [place] where her car is because her car is not necessarily fixed and running. We discussed concerns about her returning to the same environment that continues to create the addictive chaos that she finds herself in. She reports some possible exploration of sober living treatment but was appearing halfhearted. Mental Status Exam 2 MSE Comments: This is a well-nourished well-developed white female in hospital scrubs with limited grooming and eye contact.? No abnormal movements except for psychomotor agitation.??Mostly cooperative with exam in mild distress. Speech was increased in rate and normal in volume with significant with normal prosody. Mood described as allright. Her affect was odd and subdued. Thought process was linear. Thought content: patient denies suicidal or homicidal ideation. There was evidence of bizarre delusions, ideas of reference, contamination. She endorsed auditory hallucinations and did appear to be responding to internal stimuli. Attention and concentration are limited and memory appeared unreliable but none were formally tested. She is alert and oriented to person, place and time. Insight, judgment and impulse control are all impaired. Vitals/I&O/Wt Last Vital Signs Temp 98.6 F 05/11/23 06:00 Pulse 76 05/11/23 06:00 Resp 18 05/11/23 06:00 BP 155/91 05/11/23 06:00 Pulse Ox 97 05/11/23 06:00 O2 Del Method Room Air 05/11/23 06:00 Data NPU 05/08/23 14:36 05/08/23 14:36 A&P Assessment and plan (1) Psychosis: (2) Methamphetamine dependence: (3) Methamphetamine use disorder, severe, dependence: (4) Drug-induced psychotic disorder: Qualifiers: Complication of substance-induced condition: with delusions Qualified Code(s): F19.950 - Other psychoactive substance use, unspecified with psychoactive substance-induced psychotic disorder with delusions Plan This is a 57-year-old white female with a long history of mental health and addiction issues with active methamphetamine dependence and psychosis likely associated with methamphetamine use. 1.? Continue Abilify and add Wellbutrin XL 150 mg p.o. daily in the morning. 2.? Continue every 15 minute checks for safety. 3.? Encourage individual, group and milieu therapies. 4.? Encourage sober living treatment after discharge at the highest level of care to which she is willing to commit. 5. Consider inpatient substance abuse tx once stabilized. Involuntary Hold Information 2 96 Hour Hold: 96 Hour Involuntary Admission: Yes 96 Hour Hold Ending Date: 08/10/22 96 Hour Hold Ending Time: 21:24 Attestations NPU 2 Medical Necessity Statement*: Inpatient hospitalization is medically necessary and the clinically appropriate intervention at this time. We will monitor medication to make changes as indicated. The patient's likely length of stay is 3-4 days. 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
[2023-05-11] MEDS: ARIPiprazole 10 mg Tablet PO (09:03)
[2023-05-11] MEDS: nicotine 21 mg Patch 1 PATCH TRANSDERMA (12:03)
[2023-05-11 14:00] VITALS: BP 135/77; PULSE 80; RESP 16; TEMP 36.6; O2SAT 96
[2023-05-11 21:37] VITALS: BP 130/83; PULSE 87; RESP 17; TEMP 37.1; O2SAT 95
[2023-05-12 06:00] VITALS: BP 120/81; PULSE 79; RESP 16; TEMP 37; O2SAT 99
[2023-05-12] MEDS: ARIPiprazole 10 mg Tablet PO (09:28)
[2023-05-12] MEDS: buPROPion XL (24 HR) 150 mg Tablet PO (09:28)
[2023-05-12] MEDS: polyethylene glycol 3350 Pkt 17 gm PO (10:16)
[2023-05-12 14:00] VITALS: BP 124/76; PULSE 93; RESP 13; TEMP 37.2; O2SAT 95
--- NOTE | 2023-05-12 14:10 | P.NPUPN_ITS ---
Subjective NPU 2 Subjective: Patient presented today reporting that she is starting to feel more clear and that she tolerated the addition of the Wellbutrin XL back into her regimen. She continues to be ambivalent about what she is going to do related to leaving the hospital. We discussed our concerns about her returning to [place] and staying in that environment after she acknowledges that being there was a likely trigger for her addiction. She denied any side effects to the medication. Mental Status Exam 2 MSE Comments: This is a well-nourished well-developed white female in hospital scrubs with limited grooming and eye contact.? No abnormal movements except for psychomotor agitation.??Mostly cooperative with exam in mild distress. Speech was increased in rate and normal in volume with significant with normal prosody. Mood described as a little better. Her affect was less odd and subdued. Thought process was linear. Thought content: patient denies suicidal or homicidal ideation. There was evidence of bizarre delusions, ideas of reference, contamination. She endorsed auditory hallucinations and did appear to be responding to internal stimuli. Attention and concentration are limited and memory appeared unreliable but none were formally tested. She is alert and oriented to person, place and time. Insight, judgment and impulse control are all impaired. Vitals/I&O/Wt Last Vital Signs Temp 98.6 F 05/12/23 06:00 Pulse 79 05/12/23 06:00 Resp 16 05/12/23 06:00 BP 120/81 05/12/23 06:00 Pulse Ox 99 05/12/23 06:00 O2 Del Method Room Air 05/12/23 06:00 Data NPU 05/08/23 14:36 05/08/23 14:36 A&P Assessment and plan (1) Psychosis: (2) Methamphetamine dependence: (3) Methamphetamine use disorder, severe, dependence: (4) Drug-induced psychotic disorder: Qualifiers: Complication of substance-induced condition: with delusions Qualified Code(s): F19.950 - Other psychoactive substance use, unspecified with psychoactive substance-induced psychotic disorder with delusions Plan This is a 57-year-old white female with a long history of mental health and addiction issues with active methamphetamine dependence and psychosis likely associated with methamphetamine use. 1.? Continue Abilify and added Wellbutrin XL 150 mg p.o. daily in the morning. 2.? Continue every 15 minute checks for safety. 3.? Encourage individual, group and milieu therapies. 4.? Encourage sober living treatment after discharge at the highest level of care to which she is willing to commit. 5. Consider inpatient substance abuse tx once stabilized. Involuntary Hold Information 2 96 Hour Hold: 96 Hour Involuntary Admission: Yes 96 Hour Hold Ending Date: 08/10/22 96 Hour Hold Ending Time: 21:24 Attestations NPU 2 Medical Necessity Statement*: Inpatient hospitalization is medically necessary and the clinically appropriate intervention at this time. We will monitor medication to make changes as indicated. The patient's likely length of stay is 2-3 days. 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
[2023-05-12] MEDS: nicotine 4 mg lozenge MUCOUS MEM (17:54)
[2023-05-12 20:05] VITALS: BP 125/66; PULSE 75; RESP 16; TEMP 36.9; O2SAT 94
[2023-05-12] MEDS: hyDROXYzine 25 mg Capsule 50 MG PO (22:30)
[2023-05-12] MEDS: trazodone 50 mg Tablet PO (22:30)
[2023-05-13] MEDS: OLANZapine 5 mg ODT PO (01:52)
[2023-05-13 06:00] VITALS: BP 113/72; PULSE 71; RESP 16; TEMP 36.9; O2SAT 96
--- NOTE | 2023-05-13 08:33 | P.NPUPN_ITS ---
Subjective NPU 2 Subjective: Patient presented today reporting that she is starting to feel more clear and that she tolerated the addition of the Wellbutrin XL back into her regimen. She continues to be ambivalent about what she is going to do related to leaving the hospital. We continue to review our concerns about her returning to [place] and not engaging in active treatment versus going somewhere other than [place] but it appears she continues to plan on going back in that situation. We discussed that her hold ends tomorrow and we have no intention of extending it. Mental Status Exam 2 MSE Comments: This is a well-nourished well-developed white female in hospital scrubs with limited grooming and eye contact.? No abnormal movements except for psychomotor agitation.??Mostly cooperative with exam in mild distress. Speech was increased in rate and normal in volume with significant with normal prosody. Mood described as a little better. Her affect was congruent. Thought process was linear. Thought content: patient denies suicidal or homicidal ideation. There was evidence of bizarre delusions, ideas of reference, contamination. She endorsed auditory hallucinations and did appear to be responding to internal stimuli. Attention and concentration are limited and memory appeared unreliable but none were formally tested. She is alert and oriented to person, place and time. Insight, judgment and impulse control are all limited but improving. Vitals/I&O/Wt Last Vital Signs Temp 98.4 F 05/13/23 06:00 Pulse 71 05/13/23 06:00 Resp 16 05/13/23 06:00 BP 113/72 05/13/23 06:00 Pulse Ox 96 05/13/23 06:00 O2 Del Method Room Air 05/12/23 06:00 Weight last 48 hrs Weight 67.313 kg Weight 67.313 kg Data NPU 05/08/23 14:36 05/08/23 14:36 A&P Assessment and plan (1) Psychosis: (2) Methamphetamine dependence: (3) Methamphetamine use disorder, severe, dependence: (4) Drug-induced psychotic disorder: Qualifiers: Complication of substance-induced condition: with delusions Qualified Code(s): F19.950 - Other psychoactive substance use, unspecified with psychoactive substance-induced psychotic disorder with delusions Plan This is a 57-year-old white female with a long history of mental health and addiction issues with active methamphetamine dependence and psychosis likely associated with methamphetamine use. 1.? Continue Abilify and added Wellbutrin XL 150 mg p.o. daily in the morning. 2.? Continue every 15 minute checks for safety. 3.? Encourage individual, group and milieu therapies. 4.? Encourage sober living treatment after discharge at the highest level of care to which she is willing to commit. 5. Consider inpatient substance abuse tx once stabilized. Involuntary Hold Information 2 96 Hour Hold: 96 Hour Involuntary Admission: Yes 96 Hour Hold Ending Date: 08/10/22 96 Hour Hold Ending Time: 21:24 Attestations NPU 2 Medical Necessity Statement*: Inpatient hospitalization is medically necessary and the clinically appropriate intervention at this time. We will monitor medication to make changes as indicated. The patient's likely length of stay is 1-2 days. 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
[2023-05-13] MEDS: buPROPion XL (24 HR) 150 mg Tablet PO (09:40)
[2023-05-13] MEDS: nicotine 4 mg lozenge MUCOUS MEM (09:40)
[2023-05-13] MEDS: ARIPiprazole 10 mg Tablet PO (09:41)
[2023-05-13 14:00] VITALS: BP 111/68; PULSE 76; RESP 13; TEMP 37.4; O2SAT 94
[2023-05-13 19:40] VITALS: BP 104/64; PULSE 101; RESP 16; TEMP 37; O2SAT 94
[2023-05-14 06:00] VITALS: BP 117/71; PULSE 65; RESP 16; TEMP 36.3; O2SAT 95
[2023-05-14] MEDS: buPROPion XL (24 HR) 150 mg Tablet PO (08:08)
[2023-05-14] MEDS: ARIPiprazole 10 mg Tablet PO (08:08)
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
[2023-05-14 10:37] VITALS: BP 117/71; PULSE 65; RESP 16; TEMP 36.3; O2SAT 95
[2023-05-14 10:41] VITALS: BP 117/71; PULSE 65; RESP 16; TEMP 36.3; O2SAT 95
== END 2023-05-14 12:15 | disposition home or self-care (01) | DRG 897 ==
LOC: ER 14:56 → NP 17:01
PROVIDERS: Admitting Provider Psychiatry & Neurology Psychiatry; Emergency Provider Physician Assistant; Visit Provider Psychiatry & Neurology Psychiatry
DX: F15.250 Other stimulant dependence with stimulant-induced psychotic disorder with delusions (principal)
CPT/HCPCS: 36415; 80053; 80306; 80307; 85025; 97150; 97165; 99285